=== PATIENT | male | born 1930 | race Caucasian/White ===

== ENCOUNTER → 2016-03-10 10:06 | Day surgery (SDC) | payer MEDICARE, OTHER ==
[~2016-03-10 10:06] MED LIST: Bacitracin OINTMENT* 0.5% 0.5 oz TUBE ONE; Buffered Lidocaine 1% SYR 3ML* 3 ML/SYR SYRINGE INTRADERM ONE; Ciproflox/Dexameth OTIC.SUSP* 7.5 ML BTL ONE; Dexamethasone IV* 4 MG/ML 1 ML (4 MG) ONE; DiMENhydriNATE IV* 50 MG/ML VIAL IV PUSH PRN; EPINEPHrine AMP 1 MG/ML ONE; Gelfoam 12-7 ADSORBABL SPONGE* 1 EA SPONGE ONE; Gelfoam Sponge SIZE 100* SPONGE ONE; HYDROcodone/ACET. 7.5/325 LIQ* 15 ML UDC ONE; Ibuprofen TAB* 400 MG ONE; Lidocaine 2% MPF* 2 ML VIAL ONE; Propofol* 10 MG/ML 20 ML BTL IV PUSH ONE; Succinylcholine* 20 MG/ML 10 ML VIAL ONE; fentaNYL* 50 MCG/ML 2 ML VIAL (100 MCG VIAL) ONE
[2016-03-10] MEDS: fentaNYL* 50 MCG/ML 2 ML VIAL (100 MCG VIAL) IV PRN ×4 (15:44→16:17)
[2016-03-10 17:06] VITALS: BP 138/60
--- NOTE | 2016-03-11 11:10 | OP ---
DATE OF OPERATION: 03/10/16 [facility] DATE OF : 34 SURGEON: Heraclio Shields MD HUMAN RESOURCES TECHNICIAN: None. ANESTHESIOLOGIST: Flex Gandara DO ANESTHESIA: General. PRE-OP DIAGNOSIS: Cholesteatoma, right ear. POST-OP DIAGNOSIS: Cholesteatoma, right ear. OPERATIVE PROCEDURE: Right revision tympanomastoidectomy, canal wall down. EBL: Less than 30 cc. SPECIMENS: 1. Contents of middle ear and mastoid. 2. Remnant of malleus. INDICATION: This is an 85-year-old male who 6 months ago underwent right tympanomastoidectomy, canal wall up. He had fairly extensive cholesteatoma involving the middle ear and very adherent to the stapes and sinus tympani region. The patient at that time had a lot of active inflammation of the middle ear as well with significant thickening of the middle ear mucosa making dissection difficult, so the decision was made to defer ossicular chain reconstruction and bring him back for a second-look procedure. About a month ago, which was 1 month prior to the planned second stage, the patient developed a swelling and drainage from behind the right ear implying infection in the mastoid cavity. He was placed on antibiotics with limited improvement. DESCRIPTION OF PROCEDURE: Today, the patient was brought to the operating room. He was intubated, a facial nerve monitor was placed and found to be in good working order. The patient's right ear was prepped with Betadine and draped. Postauricular sulcus was infiltrated with 5 cc of 1% lidocaine with epinephrine. The ear canal was then irrigated. There was tremendous edema of the ear canal. Skin essentially obliterating the canal and obscuring the neotympanum. A four-quadrant canal injection was made and an angled [place] blade was used to make an incision through the inflamed ear canal skin from 12 o 'clock to 6 o'clock. Attention was then turned postauricularly. The patient's prior incision was entered with a #15 blade. A small temporalis fascia graft was harvested, flattened, and dried for future use if necessary. The mastoid periosteum was then entered. At the opening to the mastoid cavity, purulent material issued from that space. A flap was then turned anteriorly towards the lateral edge of the ear canal. A [place] elevator was used to elevate the thickened posterior canal skin down to the level of the previously made incision , and a [place] drain was brought through the ear canal and out postauricularly to assist in reflecting the canal and ear forward. The mastoid periosteum was cleaned off the mastoid posteriorly and the prior mastoidectomy site was evaluated. The mastoid was filled with thick fibrous granulation tissue. There was some evidence of epithelium, which was extending from the middle ear into the mastoid antrum consistent with recurrent cholesteatoma or at least the extension of the cholesteatoma matrix into the space. The mastoid was cleaned of what appeared to be condemned, inflamed mucosa down to the level of the mastoid antrum. A tympanomeatal flap was then elevated. Again, the posterior canal skin was incredibly thickened obliterating the ear canal and so this was resected. The neotympanum was then elevated. The middle ear space was very inflamed again with thickened mucosa and some evidence of persistent cholesteatoma in the region of the stapes extending superiorly and posteriorly into the mastoid antrum. There did not appear to be cholesteatoma in the anterior mesotympanum. The edges of the prior mastoidectomy were then saucerized to provide a smoother contour to the mastoid cavity, and the decision was made to proceed with a canal wall down procedure as it did not seem feasible to be able to definitively remove all cholesteatoma matrix from the stapes. The mastoid cavity was enlarged and the edges beveled. The posterior canal wall was then thinned and then taken down and beveled laterally to accommodate the course of the facial nerve. Attempts were made to remove some of the inflamed tissue from the middle ear space, but the facial nerve monitor did begin to alarm and because of concerns regarding potential for injury to the nerve, further dissection was deferred in the middle ear space. The tympanic membrane remnant was left in place anteriorly, but was not positioned to cover the stapes. The stapes was left open in continuity with the mastoid cavity to facilitate cleaning in the future. The mastoid cavity was then filled with Ciprodex-soaked Gelfoam and a meatoplasty was performed. The incision was then closed postauricularly with 3-0 Vicryl. Iodoform packing was placed into the mastoid cavity on top of the bed of Ciprodex-soaked Gelfoam and positioned tightly into the entrance to the meatus to preserve the dimensions of the meatoplasty. Bacitracin ointment was placed on the postauricular incision. A mastoid dressing was applied. The patient was then returned to the care of the anesthesiologist, extubated without difficulty, delivered to the PACU in stable condition, where facial nerve function was found to be intact. [id number]/CPS #: [id number] MTDD
== END | disposition home or self-care (01) ==
LOC: OR 10:06
PROVIDERS: ATTEND Otolaryngology
DX: H95.01 Recurrent cholesteatoma of postmastoidectomy cavity, right ear (principal); I48.91 Unspecified atrial fibrillation; Z79.01 Long term (current) use of anticoagulants; I25.10 Atherosclerotic heart disease of native coronary artery without angina pectoris; I34.0 Nonrheumatic mitral (valve) insufficiency
CPT/HCPCS: 88304; 88311; A9270-GY; J0171; J0330; J1100; J2704; J3010

== ENCOUNTER 2016-07-26 19:12 | Emergency (ER) | payer MEDICARE, OTHER ==
[2016-07-26 19:24] VITALS: BP 127/66
--- NOTE | 2016-07-26 20:30 | UC ---
Complaint Male HPI - HPI Summary HPI Summary: 85 y/o male presents to the urgent care with urinary concerns. He reports he has a urostomy s/p prostate and bladder suregery after being Dx with cancer in 2012 at [facility], and is being f/u by DR Silveira. Pt states is usually 97.6 F and today is 99.5F in temp, he is feeling tired with his urine is brown with a tinged of blood. But he is taking eliquis. He wants to make sure he doesn't have a UTI. Pt denies fever, SOB, back pain, chest pain, N/V/ D. - History of Current Complaint Chief Complaint: UCGU Stated Complaint: UTI TYPE SYMPTOMS Time Seen by Provider: 07/26/16 20:12 Hx Obtained From: Patient Onset/Duration: Sudden Onset, Lasting Hours, Still Present Timing: Constant Severity Initially: Mild Severity Currently: Mild Pain Intensity: 0 Pain Scale Used: 0-10 Numeric Aggravating Factor(s): Nothing Alleviating Factor(s): Nothing Associated Signs And Symptoms: Positive: Hematuria. Negative: Back Pain, Fever , Rectal Pain, Nausea, Vomiting(# Of Episodes =), Penile Swelling, Penile Discharge - Risk Factors Testicular Torsion: Negative - Allergies/Home Medications Allergies/Adverse Reactions: Allergies Allergy/AdvReac Type Severity Reaction Status Date / Time Ciprofloxacin AdvReac Intermediate Tachycardia Verified 03/10/16 10:31 PMH/Surg Hx/FS Hx/Imm Hx Previously Healthy: Yes Endocrine History: Dyslipidemia Cardiovascular History: Cardiac Disease, Hypertension Cancer History: Prostate Cancer - Dx in 2012,, Other - bladder CA in 2011 Other Cancer History: bladder CA Other History Of: Negative For: HIV, Hepatitis B, Hepatitis C, Anticoagulant Therapy - Surgical History Surgical History: Yes Surgery Procedure, Year, and Place: TONSILECTOMY, 3 CYSTOSCOPIES. CARDIAC STENT PLACED - 03/28/01. PROSTATECTOMY & BLADDER REMOVAL 01/14/13 W/ UROSTOMY.- [facility]. [facility]ERY 10/16/13. and [place] [place] AND [facility]. right ear growth removed - August 2015. Cardiac cath August 2015 - no news stents. right ear surgery REMOVE GROWTH 03/10/2016 - Family History Known Family History: Negative: Cardiac Disease, Hypertension, Diabetes - Social History Alcohol Use: None Substance Use Type: None Smoking Status (MU): Never Smoked Tobacco Have You Smoked in the Last Year: No - Immunization History Most Recent Influenza Vaccination: fall 2015 Most Recent Tetanus Shot: >10yrs Most Recent Pneumonia Vaccination: 2014 Review of Systems Constitutional: Negative Skin: Negative Eyes: Negative ENT: Negative Respiratory: Negative Cardiovascular: Negative Gastrointestinal: Negative Genitourinary: Hematuria - with urostomy in place Motor: Negative Neurovascular: Negative Musculoskeletal: Negative Neurological: Negative Psychological: Negative All Other Systems Reviewed And Are Negative: Yes Physical Exam Triage Information Reviewed: Yes Appearance: Well-Appearing, No Pain Distress, Well-Nourished, Obese Vital Signs: Initial Vital Signs Temp 98 F 07/26/16 19:22 Pulse 77 07/26/16 19:22 Resp 16 07/26/16 19:22 BP 127/66 07/26/16 19:22 Pulse Ox 99 07/26/16 19:22 Vital Signs Reviewed: Yes Eye Exam: Normal Eyes: Positive: Conjunctiva Clear - PERRLA, EOMI, fundus grossly normal ENT Exam: Normal ENT: Positive: Normal ENT inspection, Hearing grossly normal, Pharynx normal, TMs normal Dental Exam: Normal Neck exam: Normal Neck: Positive: Supple, Nontender, No Lymphadenopathy Respiratory Exam: Normal Respiratory: Positive: Chest non-tender, Lungs clear, Normal breath sounds Cardiovascular Exam: Normal Cardiovascular: Positive: RRR, No Murmur, Pulses Normal Abdominal Exam: Normal Abdomen Description: Positive: Nontender, No Organomegaly, Soft, Bruit, Other: - Positive urostomy bag in Right lower side of abdomen. No signs of infection observed.. Negative: CVA Tenderness (R), CVA Tenderness (L) Bowel Sounds: Positive: Present Musculoskeletal Exam: Normal Musculoskeletal: Positive: Strength Intact, ROM Intact, No Edema Neurological Exam: Normal Neurological: Positive: Alert, Muscle Tone Normal Psychological Exam: Normal Skin Exam: Normal Complaint Male Course/Dx - Course Course Of Treatment: Pt with hematuria and UTI concern. Pt with Urostomy in place. Hx obtained. PE findings: Abdomen Description: Positive: Nontender, No Organomegaly, Soft,- Positive urostomy bag in Right lower side of abdomen. No signs of infection observed.. Negative: CVA Tenderness (R), CVA Tenderness (L), . UA ordered, Result: Positive Urine blood: 3+ H, Nitrates +, leukoesteraces: 3+. Pt given 2 tabs PO of 500mg here in the urgent care since pharmacy is closed and Pt Rx Keflex 500mg PO QID x 7 days. Advised to increase fluid intake and if symptoms do not improve to return to the urgent care or f/u with his PCP for furhter treatment. Pt understood and agreed. - Differential Dx/Diagnosis Differential Diagnosis/HQI/PQRI: Pyelonephritis, Urinary Tract Infection, Other - urostomy infection Provider Diagnoses: Urinary tract infection Discharge - Discharge Plan Condition: Stable Disposition: HOME Prescriptions: Cephalexin CAP* [Keflex CAP*] 500 mg PO QID #28 cap Patient Education Materials: Urinary Tract Infection in Men (ED) Referrals: Rich Carrillo MD [Primary Care Provider] - Additional Instructions: Please take medications as instructed and finish the full course of treatment to avoid recurrent infection. Increase fluid intake, If you do not improve or if symptoms worsen after the course of antibiotics, you should either follow up with your PCP or return to the urgent care for further evaluation and treatment.
[2016-07-26] MEDS ORDERED: Cephalexin CAP* 500 MG PO ONE (21:08)
== END 2016-07-26 21:42 | disposition home or self-care (01) ==
LOC: UCEAST 19:12
DX: N39.0 Urinary tract infection, site not specified (principal); E78.5 Hyperlipidemia, unspecified; Z85.51 Personal history of malignant neoplasm of bladder; Z93.6 Other artificial openings of urinary tract status
CPT/HCPCS: 81003; 87086; 99212; A9270-GY; G0463

== ENCOUNTER 2016-12-31 10:24 | Observation (INO) | payer MEDICARE, OTHER ==
[2016-12-31] MEDS ORDERED: NS 0.9% 1000 ML* 1,000 ML IV ONE (10:47)
[2016-12-31] MEDS ORDERED: Adenosine* 3 MG/ML VIAL ONE ×2 (10:50→10:52)
[2016-12-31 11:19] LABS: Hematocrit 37 % (42-52); Hemoglobin 12.7 g/dl (14.0-18.0); Mean Corpuscular HGB Conc 34 g/dl (31-36); Mean Corpuscular Hemoglobin 32 pg (27-31); Mean Corpuscular Volume 95 fL (80-94); Mean Platelet Volume 8 um3 (7.4-10.4); Red Blood Count 3.91 10^6/ul (4.0-5.4); Red Cell Distribution Width 14 % (10.5-15); White Blood Count 6.7 10^3/ul (3.5-10.8)
[2016-12-31 11:34] LABS: Albumin 3.1 g/dL (3.2-5.2); Calcium 8.9 mg/dL (8.6-10.3); EGFR African American 86.5 (>60); EGFR Non-African American 67.3 (>60); Magnesium 1.7 mg/dL (1.9-2.7); Potassium 3.1 mmol/L (3.5-5.0); Total Bilirubin 0.6 mg/dL (0.2-1.0); Total Protein 6.1 g/dL (6.4-8.9)
[2016-12-31 11:39] LABS: Troponin I 0.07 ng/mL (<0.04)
[2016-12-31] MEDS ORDERED: Magnesium Oxide TAB* 400 MG PO ONE (11:39)
[2016-12-31 12:16] LABS: TSH (Thyroid Stimulating Horm) 1.66 mcIU/mL (0.34-5.60)
[2016-12-31] MEDS ORDERED: Potassium Chlor TAB* 20 MEQ TAB.ER PO ONE (12:32)
[2016-12-31] MEDS ORDERED: Ondansetron INJ* 2 MG/ML VIAL IV PRN (12:32)
[2016-12-31] MEDS ORDERED: Magnesium Sulfate 2 GM IV* 2 GM/50 ML BAG IVPB ONE (12:32)
[2016-12-31] MEDS ORDERED: Acetaminophen TAB* 325 MG PO PRN (12:32)
[2016-12-31] MEDS ORDERED: NS 0.9% 1000 ML* 1,000 ML IV SCH (12:45)
[2016-12-31] MEDS ORDERED: Potassium Chloride LIQUID* 20 MEQ PACKET PO ONE ×2 (12:56→13:03)
[2016-12-31] MEDS ORDERED: Potassium Chloride LIQUID* 20 MEQ PACKET ONE (13:00)
--- NOTE | 2016-12-31 13:45 | RAD ---
INDICATION: Palpitations COMPARISON: Most recent comparison chest x-rays dated September 15, 2015 TECHNIQUE: Single AP portable view of the chest was obtained. FINDINGS: Image quality is compromised due to the relative inferiority of a portable chest x-ray. The heart and mediastinum exhibit normal size and contour. The lungs are grossly clear. There is no evidence of a large pleural effusion. Visualized bones are normal for the patient's age. IMPRESSION: No radiographic evidence for acute cardiopulmonary abnormality on this portable chest x-ray.
[2016-12-31] MEDS: Heparin VIAL(*) 5000 UNITS/ML VIAL (FIVE THOUSAND) SUBCUT SCH ×2 (14:43→21:17)
[2016-12-31 15:12] LABS: Urine Bacteria Absent (Absent); Urine Bilirubin Negative (Negative); Urine Glucose Negative (Negative); Urine Nitrite Negative (Negative)
--- NOTE | 2016-12-31 15:54 | ED ---
Karen Denise Abhishek, scribed for Abram Mazariegos MD on 12/31/16 at 1102 . Palpitations / Dysrhythmia - HPI Summary HPI Summary: This patient is a 86 year old M presenting to [facility] accompanied by two females with a chief complaint of palpitations since yesterday. Pt reports of recent infection and also states he is on a strong antibiotic (2 per day; every 12 hours). Two episodes of palpitation on Sunday and two more episodes today with episodes being described as long. The patient rates the pain 0/10 in severity. Symptoms aggravated by nothing. Symptoms alleviated by nothing. Patient reports lightheadedness, and fatigue. - History of Current Complaint Chief Complaint: EDDysrhythmPalp Time Seen by Provider: 12/31/16 10:39 Hx Obtained From: Patient Onset/Duration: Lasting Days - since yesterday, Other - multiple episodes (2 on sunday and 2 on today) Aggravating: Nothing Alleviating: Nothing Associated Signs & Symptoms: Lightheadedness - Allergy/Home Medications Allergies/Adverse Reactions: Allergies Allergy/AdvReac Type Severity Reaction Status Date / Time Ciprofloxacin AdvReac Intermediate Tachycardia Verified 03/10/16 10:31 Home Medications: Home Medications ceFUROXime TAB(*) [Ceftin TAB 250 MG(*)] 500 mg PO BID 12/31/16 [History Confirmed 12/31/16] PMH/Surg Hx/FS Hx/Imm Hx Endocrine/Hematology History: Denies: Hx Anticoagulant Therapy, Hx Diabetes, Hx Thyroid Disease Cardiovascular History: Reports: Hx Coronary Artery Disease - STENT X 1 / CHOLESTEROL CONTROL WITH MED, Hx Hypercholesterolemia, Other Cardiovascular Problems/Disorders - SOB WITH OVER EXERTION Denies: Hx Congestive Heart Failure, Hx Deep Vein Thrombosis, Hx Hypertension , Hx Myocardial Infarction, Hx Pacemaker/ICD Respiratory History: Reports: Other Respiratory Problems/Disorders - chronic lung disease Denies: Hx Asthma, Hx Chronic Obstructive Pulmonary Disease (COPD), Hx Lung Cancer, Hx Pneumonia, Hx Pulmonary Embolism GI History: Reports: Hx Gastroesophageal Reflux Disease - TAKES PROTONIX, Other GI Disorders - GERD - TREATED W/ PROTONIX Denies: Hx Gall Bladder Disease, Hx Gastrointestinal Bleed, Hx Ulcer, Hx Urosepsis History: Reports: Hx Benign Prostatic Hyperplasia, Other Problems/ Disorders - OCCASIONAL UTI Denies: Hx Dialysis, Hx Kidney Stones, Hx Renal Disease Musculoskeletal History: Reports: Hx Arthritis - NECK, Hx Back Problems, Other Musculoskeletal History - scoliosis, sciatica Sensory History: Reports: Hx Cataracts, Hx Contacts or Glasses - READING GLASSES Denies: Hx Hearing Aid Opthamlomology History: Reports: Hx Cataracts, Hx Contacts or Glasses - READING GLASSES Neurological History: Denies: Hx Dementia, Hx Migraine, Hx Seizures, Hx Transient Ischemic Attacks (TIA) Comment Only: Other Neuro Impairments/Disorders - HX OF TINGLING LEFT PINKIE FINGER, NONE NOW Psychiatric History: Denies: Hx Anxiety, Hx Depression, Hx Panic Disorder, Hx Schizophrenia, Hx Bipolar Disorder - Cancer History Cancer Type, Location and Year: PROSTATE Hx Chemotherapy: No Hx Radiation Therapy: No - Surgical History Surgery Procedure, Year, and Place: TONSILECTOMY, 3 CYSTOSCOPIES. CARDIAC STENT PLACED - 03/28/01. PROSTATECTOMY & BLADDER REMOVAL 01/14/13 W/ UROSTOMY.- [facility] [place]. [facility] 10/16/13. and [place] [facility]. right ear growth removed - August 2015. Cardiac cath August 2015 - no news stents. right ear surgery REMOVE GROWTH 03/10/2016 Hx Anesthesia Reactions: No - Immunization History Date of Tetanus Vaccine: Unk Date of Influenza Vaccine: Fall 2012 Infectious Disease History: No Infectious Disease History: Denies: Hx Clostridium Difficile, Hx Hepatitis, Hx Human Immunodeficiency Virus (HIV), Hx of Known/Suspected MRSA, Hx Shingles, Hx Tuberculosis, Hx Known/ Suspected VRE, Hx Known/Suspected VRSA, History Other Infectious Disease, Traveled Outside the [place] in Last 30 Days - Family History Known Family History: Negative: Cardiac Disease, Hypertension, Diabetes - Social History Alcohol Use: None Substance Use Type: Reports: None Smoking Status (MU): Never Smoked Tobacco Have You Smoked in the Last Year: No Review of Systems Positive: Fatigue Eyes: Negative ENT: Negative Positive: Palpitations - 2 episodes on sunday and 2 episodes on sunday Respiratory: Negative Gastrointestinal: Negative Genitourinary: Negative Musculoskeletal: Negative Skin: Negative Neurological: Other - Lighthheadness Psychological: Normal All Other Systems Reviewed And Are Negative: Yes Physical Exam - Summary Physical Exam Summary: VITAL SIGNS: Reviewed. GENERAL: ~Patient is a well-developed and nourished (MALE) who is lying comfortable in the stretcher. ~Patient is not in any acute respiratory distress. HEAD AND FACE: No signs of trauma. ~No ecchymosis, hematomas or skull depressions. No sinus tenderness. EYES: PERRLA, EOMI x 2, No injected conjunctiva, no nystagmus. EARS: Hearing grossly intact. Ear canals and tympanic membranes are within normal limits. MOUTH: Oropharynx within normal limits. NECK: Supple, trachea is midline, no adenopathy, no JVD, no carotid bruit, no c- spine tenderness, neck with full ROM. CHEST: Symmetric, no tenderness at palpation LUNGS: Clear to auscultation bilaterally. No wheezing or crackles. CVS: Rapid heart rate ABDOMEN: Soft, non-tender. No signs of distention. No rebound no guarding, and no masses palpated. Bowel sounds are normal. EXTREMITIES: FROM in all major joints, no edema, no cyanosis or clubbing. NEURO: Alert and oriented x 3. No acute neurological deficits. Speech is normal and follows commands. SKIN: Dry and warm= Triage Information Reviewed: Yes Vital Signs On Initial Exam: Initial Vitals Temp Pulse Resp BP Pulse Ox 97.8 F 85 16 135/57 96 12/31/16 10:26 12/31/16 10:26 12/31/16 10:26 12/31/16 10:26 12/31/16 10:26 Vital Signs Reviewed: Yes Diagnostics - Vital Signs Vital Signs Temp Pulse Resp BP Pulse Ox 12/31/16 10:26 97.8 F 85 16 135/57 96 - Laboratory Lab Results: Lab Results 12/31/16 12/31/16 12/31/16 Range/Units 11:07 11:07 11:07 WBC 6.7 (3.5-10.8) 10^3/ul RBC 3.91 L (4.0-5.4) 10^6/ul Hgb 12.7 L (14.0-18.0) g/dl Hct 37 L (42-52) % MCV 95 H (80-94) fL MCH 32 H (27-31) pg MCHC 34 (31-36) g/dl RDW 14 (10.5-15) % Plt Count 187 (150-450) 10^3/ul MPV 8 (7.4-10.4) um3 Neut % (Auto) 66.6 (38-83) % Lymph % (Auto) 20.7 L (25-47) % [place] % (Auto) 8.8 (1-9) % Eos % (Auto) 2.8 (0-6) % Baso % (Auto) 1.1 (0-2) % Absolute Neuts (auto) 4.5 (1.5-7.7) 10^3/ul Absolute Lymphs (auto) 1.4 (1.0-4.8) 10^3/ul Absolute Monos (auto) 0.6 (0-0.8) 10^3/ul Absolute Eos (auto) 0.2 (0-0.6) 10^3/ul Absolute Basos (auto) 0.1 (0-0.2) 10^3/ul Absolute Nucleated RBC 0 10^3/ul Nucleated RBC % 0 INR (Anticoag Therapy) (0.89-1.11) Sodium 136 (133-145) mmol/L Potassium 3.1 L (3.5-5.0) mmol/L Chloride 108 (101-111) mmol/L Carbon Dioxide 22 (22-32) mmol/L Anion Gap 6 (2-11) mmol/L BUN 20 (6-24) mg/dL Creatinine 1.05 (0.67-1.17) mg/dL Est GFR ( Amer) 86.5 (>60) Est GFR (Non-Af Amer) 67.3 (>60) BUN/Creatinine Ratio 19.0 (8-20) Glucose 135 H (70-100) mg/dL Calcium 8.9 (8.6-10.3) mg/dL Magnesium 1.7 L (1.9-2.7) mg/dL Total Bilirubin 0.60 (0.2-1.0) mg/dL AST 39 (13-39) U/L ALT 34 (7-52) U/L Alkaline Phosphatase 118 H (34-104) U/L Total Creatine Kinase 56 (10-223) U/L CK-MB (CK-2) 2.8 (0.6-6.3) ng/mL Troponin I 0.07 H* (<0.04) ng/mL B-Natriuretic Peptide 369 H ( - 100) pg/mL Total Protein 6.1 L (6.4-8.9) g/dL Albumin 3.1 L (3.2-5.2) g/dL Globulin 3.0 (2-4) g/dL Albumin/Globulin Ratio 1.0 (1-3) TSH 1.66 (0.34-5.60) mcIU/mL 12/31/16 Range/Units 11:07 WBC (3.5-10.8) 10^3/ul RBC (4.0-5.4) 10^6/ul Hgb (14.0-18.0) g/dl Hct (42-52) % MCV (80-94) fL MCH (27-31) pg MCHC (31-36) g/dl RDW (10.5-15) % Plt Count (150-450) 10^3/ul MPV (7.4-10.4) um3 Neut % (Auto) (38-83) % Lymph % (Auto) (25-47) % [place] % (Auto) (1-9) % Eos % (Auto) (0-6) % Baso % (Auto) (0-2) % Absolute Neuts (auto) (1.5-7.7) 10^3/ul Absolute Lymphs (auto) (1.0-4.8) 10^3/ul Absolute Monos (auto) (0-0.8) 10^3/ul Absolute Eos (auto) (0-0.6) 10^3/ul Absolute Basos (auto) (0-0.2) 10^3/ul Absolute Nucleated RBC 10^3/ul Nucleated RBC % INR (Anticoag Therapy) 1.14 H (0.89-1.11) Sodium (133-145) mmol/L Potassium (3.5-5.0) mmol/L Chloride (101-111) mmol/L Carbon Dioxide (22-32) mmol/L Anion Gap (2-11) mmol/L BUN (6-24) mg/dL Creatinine (0.67-1.17) mg/dL Est GFR ( Amer) (>60) Est GFR (Non-Af Amer) (>60) BUN/Creatinine Ratio (8-20) Glucose (70-100) mg/dL Calcium (8.6-10.3) mg/dL Magnesium (1.9-2.7) mg/dL Total Bilirubin (0.2-1.0) mg/dL AST (13-39) U/L ALT (7-52) U/L Alkaline Phosphatase (34-104) U/L Total Creatine Kinase (10-223) U/L CK-MB (CK-2) (0.6-6.3) ng/mL Troponin I (<0.04) ng/mL B-Natriuretic Peptide ( - 100) pg/mL Total Protein (6.4-8.9) g/dL Albumin (3.2-5.2) g/dL Globulin (2-4) g/dL Albumin/Globulin Ratio (1-3) TSH (0.34-5.60) mcIU/mL Result Diagrams: 12/31/16 11:07 12/31/16 11:07 Lab Statement: Any lab studies that have been ordered have been reviewed, and results considered in the medical decision making process. - Radiology Chest X-ray Radiology Interpretation Completed By: Radiologist - No radiographic evidence for acute cardiopulmonary abnormality on this portable chest x-ray. ED physician has reviewed this radiology report and agrees. - EKG 1036 EKG Interpretation: 1036: sinus rhythm with 156 bpm, without ST elevation and normal axis 1058 EKG Interpretation: 1058: reveals sinus rhythm with 78 bpm; PVCs and normal axis Re-Evaluation - Re-Evaluation 1152 Change: Unchanged Comment: Heart rate is 69 bpm and is sinus rhythm and Dr. Brennen Dean will be accepting patient care. Course/Dx - Course Assessment/Plan: In the ED course an IV access was obtained. Patient was placed in a court recording monitor. Patient was started with IV fluids. Patients EKG shows SVT at 156 BPM. I ordered Adenosine but before medications were given his rhythm broke and now he is in a NSR at 67 BPM. Labs without any significant abnormality except for slight anemia, hypokalemia for he was given potassium chloride. BNP 369. Troponin #1: 0.07. EKG shows SVT. CXR impression: No acute pathology. I discuss my physical exam, findings and test results with Dr. Mendoza from the hospitalist services and she agrees to admit patient to his services. Patient is hemodynamically stable alert and oriented x 3. - Diagnoses Differential Diagnosis/HQI/PQRI: Positive: Paroxymal SVT, V-Tach, Other - A. fib Provider Diagnoses: SVT (supraventricular tachycardia), Elevated troponin - Physician Notifications Discussed Care Of Patient With: Brennen Dean - Provider Will accept patient care Time Discussed With Above Provider: 11:59 Discharge - Discharge Plan Condition: Stable Disposition: ADMITTED TO [facility] documentation as recorded by the Karen carcamo Abhishek accurately reflects the service I personally performed and the decisions made by , Abram Mazariegos MD.
[2016-12-31] MEDS ORDERED: Atorvastatin* 40 MG TAB PO SCH (17:00)
[2016-12-31] MEDS ORDERED: Aspirin EC Low Dose* 81 MG TAB.EC PO SCH (17:00)
--- NOTE | 2016-12-31 20:29 | HP ---
CC: Dr. Carrillo; Dr. Tabor * HISTORY AND PHYSICAL: DATE OF ADMISSION: 12/31/16 PRIMARY CARE PROVIDER: Dr. Carrillo. PRIMARY CLINICAL EXERCISE SPECIALIST: Dr. Tabor. ATTENDING PHYSICIAN WHILE IN THE HOSPITAL: Aliyah Potter MD * (report dictated by Brennen Dean NP) CHIEF COMPLAINT: Palpitations. HISTORY OF PRESENT ILLNESS: Mr. Mauricio is an 86-year-old male patient who underwent recently a nephrostomy due to the fact that he has a urostomy because he has had history of bladder cancer and he has had a cystostomy since then. He on routine followup underwent CT imaging, was found to have left-sided hydronephrosis, thought secondary to scarring in his left ureter, so he underwent the nephrostomy, Sunday this week. Unfortunately, though, he developed an infection and was admitted to [facility], where he gets his urological care from. He was put on antibiotics. He did well up there. He was discharged and over the weekend, he has noticed that he has had about 4 episodes of palpitations. He has a longstanding history of atrial fibrillation and aflutter. He follows with Dr. Tabor in the outpatient setting for this. He is on Tikosyn and he had been pretty well controlled, he said, since starting Tikosyn a year and a half ago. Unfortunately, though, ever since this procedure, he has been having difficulties with palpitations, particularly over the weekend. He has been normally able to break them with Valsalva maneuvers, unfortunately today he could not and he came into our ER to be evaluated. He denies having any chest pressure or pain with these episodes. He denies having any fevers or chills. He says that his nephrostomy has been draining well along with his urostomy. There has been no difficulty with the ostomy or the nephrostomy tubes. The patient denied having any fevers or chills. There has been no coughing. No shortness of breath. There has been no abdominal discomfort and he denies having any, again chest discomfort. He was evaluated in the ED, when he got here it was noted heart rate was in the 140s. It did break with Valsalva maneuvers down here and unfortunately, his troponin was mildly elevated, so we were asked to evaluate for admission. PAST MEDICAL HISTORY: Significant for: 1. CAD. 2. AFib. 3. Aflutter. 4. He has had hyperlipidemia, hypertension. 5. He has had bladder and prostate cancer. PAST SURGICAL HISTORY: 1. He has had a cystectomy. He has had a nephrostomy tube placed just recently. He has had a TURP. 2. He has had lumbar surgery. 3. He has also had a cardiac catheterization with one stent. MEDICATIONS: The home meds according to his list include: 1. Ceftin 500 mg p.o. b.i.d. 2. Aspirin 81 mg daily. 3. Apixaban 5 mg p.o. b.i.d., which he is not taking. He has not been taking since the nephrostomy tube placement. 4. Calcium with vitamin D 1 tablet daily. 5. Lipitor 40 mg daily. 6. Tikosyn 250 mcg p.o. b.i.d. 7. Cartia 240 mg p.o. b.i.d. 8. Cranberry with vitamin C 2 capsules p.o. q.p.m. 9. Protonix 40 mg daily. 10. Strang-3 fatty acids 1 capsule p.o. daily. 11. Multivitamin 1 tablet daily. 12. Ergocalciferol 50,000 units p.o. monthly. ALLERGIES TO MEDICATIONS: He is allergic to CIPRO. FAMILY HISTORY: Both his parents in their 90s of old age. SOCIAL HISTORY: He is does not smoke. He rarely drinks alcohol. Surrogate decision maker is his . REVIEW OF SYSTEMS: There is no documented fever. He denied having any significant weight change. There was no double vision. No ear discharge. No rhinorrhea. No sore throat. No thyroid enlargement. Denies having any chest pain. There was palpitations. There is no orthopnea or nocturnal dyspnea. There was no abdominal pain. No nausea, no vomiting. There was no dysuria, no frequency, no seizure, no loss of consciousness, no pruritus, and no skin ulcerations. Review of 14 systems completed, all others are negative. PHYSICAL EXAMINATION GENERAL: At this time, Mr. Mauricio is an 86-year-old male patient. He appears to be well nourished, well developed. He is sitting in the ER stretcher. He does not appear to be in any acute distress. VITAL SIGNS: Blood pressure 120/69, pulse 84, respirations 18, O2 sat was 93%, and temperature was 97.8. HEENT: Head atraumatic and normocephalic. Eyes, EOMs are intact. His sclerae were anicteric, not pale. His throat, oral mucosa appears to be moist. No oropharyngeal erythema. NECK: Supple. LUNGS: Clear to auscultation. No wheezes, rales, or rhonchi. HEART: Heart sounds S1 and S2. Regular rate and rhythm. No murmurs, rubs, or gallops. ABDOMEN: Soft, flat, nontender. Bowel sounds present. EXTREMITIES: Pulses were 2+ throughout. He is able to move all 4 extremities, 5/5 strength. NEUROLOGIC: He is awake, alert, and oriented x3. No gross focal deficits. SKIN: Intact. He does have an ostomy noted to his abdomen which is on the right lower side. The stoma appears to be clean, dry, and intact. He does have a nephrostomy tube to the left flank, which again his dressing was dry and intact. He does have some old serosanguineous drainage. DIAGNOSTIC STUDIES/LABORATORY DATA: WBC is 6.7, RBC of 3.91, hemoglobin 12.7, hematocrit 37, platelet count 187,000. INR 1.14. Sodium 136, potassium 3.1, chloride 108, bicarb 22, BUN 20, creatinine 1.05, glucose 135, calcium 8.9, mag 1.7. Total bilirubin 0.6, AST 79, ALT 34, alk phos 118. CK was 56, CK-MB was 2.8, troponin 0.07. BNP 369. Albumin of 3.1. He did have an EKG. Initial EKG shows SVT, rate was 156, but it could be aflutter with a 2:[address] depression. When you look at the repeat EKG when he converted, it shows normal sinus rhythm, no ST elevations. No ST depressions. He does have PVCs. That is reviewed to his baseline EKG and appears to be similar with the exception of PVCs. Old medical records were reviewed. ASSESSMENT AND PLAN: Mr. Mauricio is an 86-year-old male patient coming into our hospital today with complaints of palpitations and appears to be in supraventricular tachycardia. He converted here in the ED, however, his troponin was elevated. We were asked to evaluate for admission. He will be admitted under observation status for: 1. Supraventricular tachycardia, concern for atrial fibrillation, aflutter. At this point, he is back to sinus rhythm. His potassium and magnesium are low. I am going to replace these and try to get them between 2 and 4 respectively. I will go ahead and cycle those troponins. I am going to leave his Tikosyn and his diltiazem alone at this point, and we will continue to follow. I did order an echo. 2. Indeterminate troponins probably secondary to demand ischemia. I think it will be beneficial to touch base with his ict systems test engineer tomorrow, Dr. Tabor. He is chest pain free. Given the fact that he is having a recent procedure, we may need to have Cardiology input. I did order an echo. I made the patient n.p.o. after midnight in case Dr. Tabor wanted to pursue a stress test. If the troponins elevate, I will give the patient a dose of Lovenox, but again he is chest pain free and most likely he has demand ischemia secondary to his rate and we will continue to follow him closely. 3. Recent urological procedures. His nephrostomy appears to be in situ, appears to be stable. Both his urostomy and his nephrostomy are draining appropriately. They appear to be stable. We will continue to follow, and he can follow with his primary urologist, Dr. Silveira and can touch base with them tomorrow to explain what is going on. 4. Coronary artery disease, continue meds as prescribed. He is having no chest pain. 5. History of bladder and prostate cancer. Follow up with his primary urologist and PCP. 6. Hypertension. Continue meds as prescribed. 7. Hyperlipidemia. Continue statin therapy. 8. DVT prophylaxis. I will place him on heparin subcu. 9. Code status. Full code. 10. Fluids, electrolytes, and nutrition: He can have a heart healthy diet. TIME SPENT: On this admission was approximately 60 minutes, greater than half the time spent [id number] with the patient obtaining my history and physical, other half time spent going over the plan of care with the patient, implementing the plan of care. I discussed the plan of care with my attending Dr. Potter, she is in agreement. BRENNEN DEAN ECHOCARDIOLOGIST [id number]/[facility] #: [id number] SANDRINE
[2016-12-31] MEDS: ceFUROXime TAB(*) 250 MG PO SCH (20:59)
[2016-12-31] MEDS ORDERED: Potassium Chlor TAB* 20 MEQ TAB.ER PO SCH (21:00)
[2016-12-31] MEDS: Diltiazem CD CAP* 240 MG PO SCH (21:01)
[2016-12-31] MEDS: Potassium Chloride LIQUID* 20 MEQ PACKET PO SCH (21:03)
[2016-12-31] MEDS: Dofetilide CAP* 250 MCG PO SCH (21:07)
[2017-01-01 05:33] LABS: Hematocrit 35 % (42-52); Hemoglobin 12.1 g/dl (14.0-18.0); Mean Corpuscular HGB Conc 34 g/dl (31-36); Mean Corpuscular Hemoglobin 33 pg (27-31); Mean Corpuscular Volume 95 fL (80-94); Mean Platelet Volume 8 um3 (7.4-10.4); Red Blood Count 3.72 10^6/ul (4.0-5.4); Red Cell Distribution Width 13 % (10.5-15); White Blood Count 6.1 10^3/ul (3.5-10.8)
[2017-01-01] MEDS: Heparin VIAL(*) 5000 UNITS/ML VIAL (FIVE THOUSAND) SUBCUT SCH (05:35)
[2017-01-01 06:06] LABS: Calcium 8.2 mg/dL (8.6-10.3); EGFR African American 86.5 (>60); EGFR Non-African American 67.3 (>60); Magnesium 1.8 mg/dL (1.9-2.7); Potassium 3.7 mmol/L (3.5-5.0)
[2017-01-01] MEDS ORDERED: Omeprazole CAP* 20 MG PO SCH (09:00)
[2017-01-01] MEDS ORDERED: Potassium Chloride LIQUID* 20 MEQ PACKET PO ONE (10:07)
[2017-01-01] MEDS ORDERED: Magnesium Sulfate 2 GM IV* 2 GM/50 ML BAG IVPB ONE (10:07)
--- NOTE | 2017-01-01 10:13 | PN ---
Subjective Date of Service: 01/01/17 Interval History: Patient seen and examined at bedside. Denies fever, chills, shortness of breath , chest discomfort, N/V/D. Tele: Sinus rhythm w/ 1st degree block, rate 60-70's. Family History: Unchanged from Admission Social History: Unchanged from Admission Past Medical History: Unchanged from Admission Objective Active Medications: Acetaminophen (Tylenol Tab*) 650 mg PO Q4H PRN Reason: FEVER/PAIN Aspirin (Aspirin Ec Low Dose*) 81 mg PO 1700 OWEN Atorvastatin Calcium (Lipitor*) 40 mg PO 1700 OWEN Cefuroxime Axetil (Ceftin Tab(*)) 500 mg PO BID OWEN Diltiazem HCl (Cardizem Cd Cap*) 240 mg PO BID OWEN Dofetilide (Tikosyn Cap*) 250 mcg PO BID OWEN Heparin Sodium (Porcine) (Heparin Vial(*)) 5,000 units SUBCUT Q8HR OWEN Sodium Chloride (Ns 0.9% 1000 Ml*) 1,000 mls @ 75 mls/hr IV PER RATE OWEN Magnesium Sulfate (Magnesium Sulfate 2 Gm Iv*) 2 gm in 50 mls @ 50 mls/hr IVPB ONCE ONE Stop: 01/01/17 11:06 Omeprazole (Prilosec Cap*) 20 mg PO QAM OWEN Potassium Chloride (Klor-Con Liquid*) 40 meq PO BID OWEN Potassium Chloride (Klor Con Er Tab*) 40 meq PO ONCE ONE Stop: 01/01/17 10:08 Vital Signs 12/31/16 12/31/16 12/31/16 12:30 13:00 13:30 Temperature Pulse Rate 68 66 64 Respiratory 16 19 17 Rate Blood Pressure 136/65 130/68 133/69 (mmHg) O2 Sat by Pulse 96 95 94 Oximetry 12/31/16 12/31/16 12/31/16 14:00 14:15 19:34 Temperature 99.0 F 97.8 F Pulse Rate 67 65 67 Respiratory 16 16 18 Rate Blood Pressure 137/68 142/69 127/56 (mmHg) O2 Sat by Pulse 95 97 97 Oximetry 01/01/17 01/01/17 00:06 03:38 Temperature 98.0 F 98.3 F Pulse Rate 69 68 Respiratory 20 22 Rate Blood Pressure 126/62 126/64 (mmHg) O2 Sat by Pulse 95 94 Oximetry Oxygen Devices in Use Now: None Appearance: NAD, Ears/Nose/Mouth/Throat: Mucous Membranes Moist Respiratory: Symmetrical Chest Expansion and Respiratory Effort, Clear to Auscultation Cardiovascular: NL Sounds; No Murmurs; No JVD, RRR Extremities: No Edema Skin: No Rash or Ulcers Neurological: Alert and Oriented x 3, NL Muscle Strength and Tone Lines/Tubes/Other Access: Clean, Dry and Intact Peripheral IV - site benign Nutrition: Taking PO's Result Diagrams: 01/01/17 05:03 01/01/17 05:03 Additional Lab and Data: Assess/Plan/Problems-Billing Assessment: Mr. Mauricio is an 86 yo male with PMH significant for CAD, Afib/flutter, HLD, HTN , bladder and prostate CA who presented to the hospital with complaints of palpitations and appeared to be in SVT. He converted in the ED, but was found to have elevated troponins. - Patient Problems (1) Paroxysmal SVT (supraventricular tachycardia) Code(s): I47.1 - SUPRAVENTRICULAR TACHYCARDIA SNOMED Code(s): 62054302 Comment: - Suspect secondary to electrolyte abnomalities - Converted to Sinus rhythm in ED - Cardiology Consult, input appreciated - Goal electrolytes: K+ >4 and MG+ >2 - Continue Tikosyn and Diltiazem (2) Electrolyte abnormality Code(s): E87.8 - OTH DISORDERS OF ELECTROLYTE AND FLUID BALANCE, NEC SNOMED Code(s): 736927710 Comment: - Hypokalemia - Resolved - Hypomagnesemia - Will give replacement prior to discahrge (3) Elevated troponin Code(s): R74.8 - ABNORMAL LEVELS OF OTHER SERUM ENZYMES SNOMED Code(s): 359641589 Comment: - Peaked at 0.08 - Denies chest pain - Suspect secondary to demand ischemia - Echo results pending (4) Paroxysmal A-fib Code(s): I48.0 - PAROXYSMAL ATRIAL FIBRILLATION SNOMED Code(s): 060244086 Comment: - Now in Sinus rhythm - With Aflutter - Continue Tikosyn and Cardizem - Eliquis on hold d/t up coming procedure (5) History of nephrostomy Code(s): Z87.448 - PERSONAL HISTORY OF OTHER DISEASES OF URINARY SYSTEM SNOMED Code(s): 121742514 Comment: - Nephrostomy tube in place - Follow-up with Dr. Silveira outpatient (6) CAD (coronary artery disease) Code(s): I25.10 - ATHSCL HEART DISEASE OF [place] CORONARY ARTERY W/O ANG PCTRS SNOMED Code(s): 01102630 Comment: - Asymptomatic - Continue ASA and statin (7) HTN (hypertension) Code(s): I10 - ESSENTIAL (PRIMARY) HYPERTENSION SNOMED Code(s): 26764491 Comment: - Normotensive, SBP 120-140's - Continue home medications (8) HLD (hyperlipidemia) Code(s): E78.5 - HYPERLIPIDEMIA, UNSPECIFIED SNOMED Code(s): 67482397 Comment: - Continue statin (9) Bladder cancer Comment: - Continue to follow with outpatient PCP and Urology (10) Prostate CA Code(s): C61 - MALIGNANT NEOPLASM OF PROSTATE SNOMED Code(s): 656687690 Comment: - Continue to follow with outpatient PCP and Urology (11) DVT prophylaxis Code(s): QMO6206 - SNOMED Code(s): 374952177 (12) Full code status Code(s): Z78.9 - OTHER SPECIFIED HEALTH STATUS SNOMED Code(s): 992265651 Status and Disposition: OBV. Stable for discharge to home today.
[2017-01-01] MEDS: Diltiazem CD CAP* 240 MG PO SCH (10:37)
[2017-01-01] MEDS: ceFUROXime TAB(*) 250 MG PO SCH (10:37)
[2017-01-01] MEDS: Dofetilide CAP* 250 MCG PO SCH (10:39)
[2017-01-01] MEDS: Potassium Chloride LIQUID* 20 MEQ PACKET PO SCH (10:42)
[2017-01-01 11:24] VITALS: BP 133/59
--- NOTE | 2017-01-01 12:49 | CONS ---
CC: Rich Carrillo MD. * CARDIOLOGY CONSULTATION: DATE OF CONSULT: 01/01/17. INDICATION FOR CONSULTATION: Admitted to the hospital with tachycardia. HISTORY OF PRESENT ILLNESS: The patient is an 86-year-old gentleman well known to me with history of paroxysmal atrial fibrillation, and history of coronary artery disease. In speaking with the patient, he states that this weekend he had a couple of episodes of tachycardia, likely has atrial fibrillation. The patient had recently been seen up at [place] for his bladder cancer and was scheduled to have a procedure on his ureters. Unfortunately, the patient had an urinary tract infection and was started on Keflex and discharged home. He is scheduled tomorrow for this repeat procedure. The patient was discharged home last week with Keflex. Unfortunately, the patient had a GI reaction to the Keflex and had some significant diarrhea. The patient stated that on Sunday this week he was having episodes of palpitations. His heart was racing. When he rested, his symptoms went away. Ultimately, on Sunday he continued to have these symptoms and came to the emergency room. On arrival at the emergency room , the patient was in supraventricular tachycardia of 150 beats per minute. The patient converted to normal sinus rhythm on his own. The patient was found to have a potassium level of 3.1 and magnesium level of 1.7 in the emergency room. These were repleted over overnight. This morning, the patient feels fine. He has no symptoms. He has no chest pain, shortness of breath, orthopnea, or PND. No lightheadedness, dizziness, or syncope. PAST MEDICAL HISTORY: Significant for atrial fibrillation. The patient is on Tikosyn, history of coronary artery disease. The patient had a stent to his LAD in 2001. The patient had a cardiac catheterization in August 2015. At that time, he had normal coronary arteries. The stent to his LAD was patent. He has a history of bladder cancer and hypertension. MEDICATIONS: Outpatient medications: 1. Tikosyn 250 mcg twice a day. 2. Eliquis 5 mg b.i.d. 3. Diltiazem ER 240 mg a day. 4. Protonix 40 mg a day. 5. Lipitor 40 mg a day. 6. Aspirin 81 mg a day. 7. Co-enzyme Q10 multiple supplements. ALLERGIES: He has intolerant of CIPROFLOXACIN. FAMILY HISTORY: Noncontributory. SOCIAL HISTORY: He is . He is retired. Denies tobacco or alcohol use. 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 PHYSICAL EXAMINATION: Height is 6 feet 1 inch, weight 200 pounds. Vital Signs : Temperature 98.3, heart rate is 68 and regular, blood pressure 126/64, respiratory rate is 16, oxygen saturation 94% on room air. Sclerae anicteric. Oropharynx is pink without erythema. Carotids are 2+ without bruits. JVD is normal. Thyroid is normal. Cardiac Exam: S1, S2, without any murmurs, rubs, or gallops. Lungs are clear to auscultation bilaterally. There is no dullness to percussion. Abdomen is soft, nontender, nondistended, with normoactive bowel sounds. Extremities show no edema. He has 2+ pulses throughout. The patient is awake, alert, and oriented. He moves all 4 extremities equally. LABORATORY DATA: CBC within normal limits. Chemistry is within normal limits. Today, his potassium is 3.7, magnesium is 1.8. His peak troponin level was 0.08 secondary to his tachycardia. TSH is 1.6. IMPRESSION: This is an 86-year-old gentleman who was admitted to the hospital with tachycardia. He was found to be in SVT. He is converted to normal sinus rhythm on his own. His SVT is likely due to his low potassium and magnesium levels secondary to his diarrhea. The patient electrolytes levels have not been repleted and he is feeling much better. For now, my recommendation is to have no other further testing. He did have an echocardiogram today, which I will read later, but anticipate no problems. The patient will continue on his outpatient medications. He will follow up with me as scheduled in February 2017. [id number]/[facility] #: [id number] [facility] HOSPITALAdonis
--- NOTE | 2017-01-01 12:55 | ECHO ---
Patient: TRISHA DIOP [facility] Rec#: [id number] : 1930 Date: 01/01/2017 Age: 86y Height: 185.42 cm / 73.0 in Weight: 86.18 kg / 189.9 lbs Sex: M BSA: 2.11 Room#: [facility] Admit Date#: 12/31/2016 Type: Inpatient Referring: Brennen Dean NP Reading: Byron Tabor MD Crepe Box Tender: Darlene Murry RDCS CC: Rich Carrillo MD Transthoracic Echocardiogram Indication: CAD, A-fib, elevated troponin level. BP: 126/64 HR: 64 Rhythm: NSR with PVCs Findings History: CAD, a-fib, HTN, HLD, bladder cancer, s/p nephrectomy. Technical Comments: The study quality is good. Completed at 1000 Left Ventricle: The left ventricular chamber size is normal. Mild concentric left ventricular hypertrophy is observed. There is a prominent septal knuckle. Global left ventricular wall motion and contractility are within normal limits. There is normal left ventricular systolic function. The estimated ejection fraction is 55-60%. Abnormal left ventricular diastolic function is observed. Abnormal left ventricular diastolic filling is observed, consistent with impaired relaxation. Left Atrium: The left atrium is moderately dilated. Right Ventricle: Moderator Band present. The right ventricle is mildly dilated. The right ventricular global systolic function is normal. Right Atrium: The right atrium is moderately dilated. Aortic Valve: The aortic valve is trileaflet. There is evidence of aortic sclerosis without stenosis. There is trace to mild aortic regurgitation. There is no evidence of aortic stenosis. Mitral Valve: There is mitral annular calcification. The mitral valve leaflets are mildly thickened. There is mild mitral regurgitation. There is no evidence of mitral stenosis. Tricuspid Valve: The tricuspid valve leaflets are normal. There is mild tricuspid regurgitation. The right ventricular systolic pressure is estimated at 43 mmHg. There is evidence of mild pulmonary hypertension. There is no tricuspid stenosis. Pulmonic Valve: The pulmonic valve appears normal. There is a trace pulmonic regurgitation. There is no pulmonic stenosis. Pericardium: There is no significant pericardial effusion. A pericardial fat pad is visualized. Aorta: There is mild dilatation of the ascending aorta. There is no dilatation of the aortic arch. There is moderate dilatation of the aortic root. Pulmonary Artery: The main pulmonary artery appears normal. Venous: The inferior vena cava is dilated. There is an approximate 50% respiratory change in the inferior vena cava dimension. Conclusions Global left ventricular wall motion and contractility are within normal limits. There is a prominent septal knuckle. The estimated ejection fraction is 55-60%. Abnormal left ventricular diastolic function is observed. The right ventricular global systolic function is normal. There is trace to mild aortic regurgitation. There is mild mitral regurgitation. There is mild tricuspid regurgitation. There is evidence of mild pulmonary hypertension. There is no significant pericardial effusion. Measurements Name Value Normal Range RVIDd (AP) 2D 2.9 cm (0.9 - 2.6) RVDdMajor (2D) 4.6 cm (2.2 - 4.4) RAd ISD 4CH 5.8 cm (3.4 - 4.9) RA (A4C)W 4.2 cm (2.9 - 4.6) IVSd (2D) 1.2 cm (0.6 - 1) LVPWd (2D) 1.2 cm (0.6 - 1) LVIDd (2D) 4.7 cm (3.6 - 5.4) LVIDs (2D) 3.1 cm - LV FS (2D) 35 % (25 - 45) Aortic Annulus 2.5 cm (1.4 - 2.6) Ao root diameter (2D) 4.2 cm (2.1 - 3.5) Ascending Ao 3.6 cm (2.1 - 3.4) Aortic arch 3 cm (1.8 - 3.4) LA dimension (AP) 2D 4.5 cm (2.3 - 3.8) LAd ISD 4CH 4.7 cm (2.9 - 5.3) LA ISD 4CH W 5 cm (2.5 - 4.5) Name Value Normal Range LA ESV SP 4CH (A/L) 74 ml - LA ESV SP 2CH (A/L) 107 ml - LA ESV BP (A/L) 95 ml - LA ESV BP (A/L) index 45 ml/m2 - LA ESV SP 4CH (MOD) 73 ml - LA ESV SP 2CH (MOD) 102 ml - Name Value Normal Range MV E-wave Vmax 0.5 m/sec - MV deceleration time 326.7 msec - MV A-wave Vmax 0.66 m/sec - MV E:A ratio 0.75 ratio - LV septal e' Vmax 0.06 m/sec - LV lateral e' Vmax 0.09 m/sec - LV E:e' septal ratio 8.33 ratio - LV E:e' lateral ratio 5.56 ratio - Name Value Normal Range AV Vmax 1 m/sec - AV VTI 20.67 cm - AV peak gradient 3.85 mmHg - AV mean gradient 2.14 mmHg - LVOT Vmax 0.76 m/sec - LVOT VTI 17.84 cm - LVOT peak gradient 2.35 mmHg - LVOT mean gradient 1.23 mmHg - ZACHARY Vmax 0.57 m/sec - Name Value Normal Range TR Vmax 2.4 m/sec - TR peak gradient 23 mmHg - RAP 20 mmHg - RVSP 43 mmHg - IVC diameter 2.4 cm - Name Value Normal Range PV Vmax 0.83 m/sec - PV peak gradient 2.82 mmHg -
--- NOTE | 2017-01-02 00:47 | DS ---
CC: Rich Carrillo MD * DISCHARGE SUMMARY: DATE OF ADMISSION: 12/31/16 DATE OF DISCHARGE: 01/01/17 ATTENDING PHYSICIAN: Estuardo Castillo MD * (dictated by Laxmi Casiano NP) PRIMARY CARE PROVIDER: Rcih Carrillo MD PRIMARY DIAGNOSES: 1. Supraventricular tachycardia. 2. Electrolyte abnormalities; hypomagnesemia and hypokalemia. 3. Hypertroponinemia, suspect secondary to demand ischemia due to supraventricular tachycardia. SECONDARY DIAGNOSES: 1. Nephrostomy. 2. Coronary artery disease. 3. History of bladder and prostate cancer. 4. Hypertension. 5. Hyperlipidemia. 6. History of paroxysmal atrial fibrillation and atrial flutter. CONSULTATIONS WHILE IN THE HOSPITAL: Byron Tabor MD, with Cardiology. STUDIES WHILE IN THE HOSPITAL: 1. Chest x-ray on 12/31/16. Radiologist's impression: No radiographic evidence for acute cardiopulmonary abnormality on this portable chest x-ray. 2. Transthoracic echocardiogram on 01/01/17. Results pending at the time of this dictation. DISCHARGE MEDICATIONS: Continued home medications: 1. Ceftin 500 mg oral twice daily. 2. Aspirin 81 mg oral daily. 3. CoQ10, 100 mg oral every evening. 4. Calcium carbonate-cholecalciferol 1 tablet oral daily. 5. Atorvastatin 40 mg oral daily. 6. Tikosyn 250 mcg oral twice daily. 7. Diltiazem XR 240 mg oral twice daily. 8. Cranberry-vitamin C-vitamin E 2 capsules oral every evening. 9. Protonix 40 mg oral daily. 10. Ceres-3-6-9 complex 1 capsule oral daily. 11. Multivitamin 1 capsule oral daily. 12. Ergocalciferol 50,000 units oral monthly. Medications on hold: 1. Eliquis. HISTORY OF PRESENT ILLNESS/HOSPITAL COURSE: Mr. Mauricio is an 86-year-old male with past medical history significant for paroxysmal atrial fib and flutter, coronary artery disease, hyperlipidemia, hypertension, and history of bladder and prostate cancer who recently underwent a nephrostomy tube placement due to the fact that his ureter was not draining as he was found to have a left-sided hydronephrosis. The patient had developed an infection, was admitted at [facility], where he gets his urological care from. He was placed on antibiotics and was doing well. He was discharged over the weekend when he noticed he had 4 episodes of palpitations due to his longstanding history of atrial fibrillation and atrial flutter. He decided to present to the hospital for further evaluation of his symptoms. The patient states normally he is able to break his palpitations with a Valsalva maneuver, but unfortunately he could not get them to break on the day of admission. While in the emergency room, the patient was noted to have an initial heart rate in the 140s with supraventricular tachycardia resolved with a Valsalva maneuver, but he was noted to have slightly elevated troponins and the hospitalists were asked to evaluate him for admission. While in the hospital, the patient remained in a sinus rhythm with controlled rate. His troponins were trended and peaked at 0.08. It was suspected this is secondary to demand ischemia due to the supraventricular tachycardia. The patient was seen in consultation by Dr. Byron Tabor who felt that his electrolyte abnormalities may have contributed to the supraventricular tachycardia. He received magnesium and potassium replacements during his stay. He also underwent a transthoracic echocardiogram with results pending at time of this dictation. It was felt that the patient was ready for discharge to home. Mr. Mauricio is stable for discharge to home today. Vital signs are as follows: Temperature 98.3, heart rate 68, respiratory rate 22, O2 sat 94% on room air, blood pressure 126/64. DISCHARGE PLAN: Mr. Mauricio will be discharged to home. Activity as tolerated. He will be on a regular diet. As far as the patient's supraventricular tachycardia, he is now in sinus rhythm. I recommend following his electrolytes as outpatient to help maintain a sinus rhythm. He should be seen in followup by his primary care provider, Dr. Rich Carrillo. Dr. Carrillo's office will call the patient in the next 48 hours with a followup appointment date and time. The patient has been asked to return to the emergency room for any chest pain, shortness of breath. The patient has been resumed on all of his usual home medications with the exception of his Eliquis, which has been held due to the fact that he will be having a urological procedure with Dr. Silveira tomorrow. He has been instructed to resume his Eliquis once instructed to do so. This is a summarized report of a complex medical history and hospital stay. For further details, please see the entire medical record. TIME SPENT: Time for this discharge was approximately 50 minutes, greater than half of that was spent with the patient discussing discharge plans and instructions. CONDITION ON DISCHARGE: Stable. LAXMI MERCEDES, GLORIA [id number]/CPS #: [id number] [facility]
== END 2017-01-01 13:20 | disposition home or self-care (01) ==
LOC: ED 10:24 → MEDTELE 12:29
PROVIDERS: ADMIT Internal Medicine; ATTEND Internal Medicine
DX: I47.1 Supraventricular tachycardia (principal); E83.42 Hypomagnesemia; E87.6 Hypokalemia; R74.8 Abnormal levels of other serum enzymes; I25.10 Atherosclerotic heart disease of native coronary artery without angina pectoris; I10 Essential (primary) hypertension; E78.5 Hyperlipidemia, unspecified; I51.7 Cardiomegaly; I48.0 Paroxysmal atrial fibrillation; E87.8 Other disorders of electrolyte and fluid balance, not elsewhere classified; Z79.01 Long term (current) use of anticoagulants; Z85.51 Personal history of malignant neoplasm of bladder; Z85.46 Personal history of malignant neoplasm of prostate; Z79.82 Long term (current) use of aspirin; Z79.899 Other long term (current) drug therapy; Z88.1 Allergy status to other antibiotic agents
CPT/HCPCS: 36415; 71010; 80048; 80053; 81003; 81015; 82550; 82553; 83735; 83880; 84443; 84484; 85025; 85610; 87086; 93005; 93306; 96365; 96366; 96372; 99284; A9270-GY; G0378; J0153; J1644; J3475

== ENCOUNTER 2021-01-13 10:55 | Inpatient (IN) ==
[~2021-01-13 10:55] MED LIST changes: -Bacitracin OINTMENT* 0.5% 0.5 oz TUBE ONE; -Buffered Lidocaine 1% SYR 3ML* 3 ML/SYR SYRINGE INTRADERM ONE; +Cefepime 2 GM in Dextrose 2 GM/50 ML BAG IV SCH; -Ciproflox/Dexameth OTIC.SUSP* 7.5 ML BTL ONE; -Dexamethasone IV* 4 MG/ML 1 ML (4 MG) ONE; -DiMENhydriNATE IV* 50 MG/ML VIAL IV PUSH PRN; -EPINEPHrine AMP 1 MG/ML ONE; -Gelfoam 12-7 ADSORBABL SPONGE* 1 EA SPONGE ONE; -Gelfoam Sponge SIZE 100* SPONGE ONE; -HYDROcodone/ACET. 7.5/325 LIQ* 15 ML UDC ONE; -Ibuprofen TAB* 400 MG ONE; -Lidocaine 2% MPF* 2 ML VIAL ONE; -Propofol* 10 MG/ML 20 ML BTL IV PUSH ONE; -Succinylcholine* 20 MG/ML 10 ML VIAL ONE; -fentaNYL* 50 MCG/ML 2 ML VIAL (100 MCG VIAL) ONE
[2021-01-13 12:38] LABS: ABS Basophils 0.1 10^3/ul (0-0.2); ABS Lymphocytes 0.7 10^3/ul (1.0-4.8); ABS Monocytes 0.9 10^3/ul (0-0.8); ABS Neutrophils 8.5 10^3/ul (1.5-7.7); Eosinophil % 0.2 %; Hematocrit 34 % (42-52); Hemoglobin 11.2 g/dL (14.0-18.0); Lymphocyte % 6.9 %; Mean Corpuscular HGB Conc 33 g/dL (31-36); Mean Corpuscular Hemoglobin 30 pg (27-31); Mean Corpuscular Volume 91 fL (80-94); Mean Platelet Volume 8.7 fL (7.4-10.4); Platelet Count 204 10^3/uL (150-450); Red Blood Count 3.67 10^6 /uL (4.18-5.48); Red Cell Distribution Width 15 % (10-15); White Blood Count 10.2 10^3/uL (3.5-10.8)
[2021-01-13 12:44] LABS: Urine Appearance Turbid; Urine Bilirubin Negative (Negative); Urine Blood 2+ (Negative); Urine Color Amber; Urine Glucose Negative (Negative); Urine Ketones Negative (Negative); Urine Nitrite Negative (Negative); Urine Protein 1+(30 mg/dL) (Negative); Urine Specific Gravity 1.015 (1.002-1.030); Urine Urobilinogen Negative (Negative)
[2021-01-13 12:48] LABS: Urine Bacteria 1+ (Absent); Urine Red Blood Cell 3+(>10/hpf) (Absent); Urine White Blood Cell 3+(>20/hpf) (Absent)
[2021-01-13 12:56] LABS: Rapid COVID-19 Molecular Undetected (Undetected)
[2021-01-13 12:59] LABS: Activated Partial Thrombo Time 35.9 seconds (26.0-38.0); INR 2.58 (0.86-1.15)
[2021-01-13 13:03] LABS: Anion Gap 7 mmol/L (2-11); Blood Urea Nitrogen 29 mg/dL (6-24); CO2 Carbon Dioxide 22 mmol/L (22-32); Chloride 105 mmol/L (101-111); Glucose 108 mg/dL (70-100); Potassium 3.7 mmol/L (3.5-5.0); Sodium 134 mmol/L (135-145)
[2021-01-13 13:04] LABS: ALT 26 U/L (7-52); AST 32 U/L (13-39); Albumin 3.1 g/dL (3.2-5.2); Albumin/Globulin Ratio 0.8 (1-3); Alkaline Phosphatase 142 U/L (35-149); C Reactive Protein 21.48 mg/L (<8.01); Calcium 8.2 mg/dL (8.6-10.3); Globulin 3.7 g/dL (2-4); Total Protein 6.8 g/dL (6.4-8.9); Troponin I 0.09 ng/mL (<0.03)
[2021-01-13] MEDS ORDERED: cefTRIAXone 1 gm/50 mL NS BAG 1 GM/50 ML BAG IV ONE (13:15)
[2021-01-13] MEDS ORDERED: NS 0.9% 1000 ml BAG 1,000 ML IV ONE ×2 (14:28→14:29)
[2021-01-13 14:55] LABS: Magnesium 1.9 mg/dL (1.9-2.7)
[2021-01-13 15:38] LABS: Troponin I 0.08 ng/mL (<0.03)
[2021-01-13] MEDS ORDERED: Cefepime 2 GM in Dextrose 2 GM/50 ML BAG IV ONE (16:00)
[2021-01-13] MEDS ORDERED: NS 0.9% IVPB ONE (16:00)
[2021-01-13] MEDS ORDERED: AMPICILLIN ADVAN IVPB ONE (16:00)
[2021-01-13] MEDS: Ampicillin ADVAN 1 GM in NS 0.9% 50 ML 50 ML IVPB SCH (23:16)
[2021-01-14] MEDS: Ampicillin ADVAN 1 GM in NS 0.9% 50 ML 50 ML IVPB SCH ×4 (03:43→22:45)
[2021-01-14 05:19] LABS: Hematocrit 31 % (42-52); Hemoglobin 10.4 g/dL (14.0-18.0); Mean Corpuscular HGB Conc 34 g/dL (31-36); Mean Corpuscular Hemoglobin 30 pg (27-31); Mean Corpuscular Volume 91 fL (80-94); Mean Platelet Volume 8.5 fL (7.4-10.4); Platelet Count 168 10^3/uL (150-450); Red Blood Count 3.41 10^6 /uL (4.18-5.48); Red Cell Distribution Width 15 % (10-15); White Blood Count 8.8 10^3/uL (3.5-10.8)
[2021-01-14 05:37] LABS: Calcium 7.8 mg/dL (8.6-10.3); Magnesium 1.9 mg/dL (1.9-2.7); Potassium 3.9 mmol/L (3.5-5.0)
[2021-01-14] MEDS: Cefepime 2 GM in Dextrose 2 GM/50 ML BAG IV SCH ×2 (06:13→18:09)
[2021-01-14] MEDS ORDERED: Potassium Chlor 10 meq TAB PO ONE (07:03)
[2021-01-14] MEDS ORDERED: Magnesium Sulfate 2 gm BAG 2 GM/50 ML BAG IVPB ONE (07:03)
[2021-01-14] MEDS ORDERED: NS 0.9% 1000 ml BAG 1,000 ML IV SCH (07:15)
[2021-01-14] MEDS: Pancrelipase 5,000 units CAP PO SCH ×3 (07:58→17:10)
[2021-01-14] MEDS: Aspirin EC 81 mg TAB.EC (enteric coated) PO SCH (07:58)
[2021-01-14] MEDS: [UNRECOGNIZED DRUG - REMARK] PO SCH (07:59)
[2021-01-14] MEDS ORDERED: cefTRIAXone 1 gm/50 mL NS BAG 1 GM/50 ML BAG IVPB SCH (09:00)
[2021-01-14 17:20] LABS: Body Fluid Source Peritonial Fluid
[2021-01-14 18:47] LABS: Body Fluid Appearance Clear; Body Fluid Color Yellow
[2021-01-14 19:42] LABS: Body Fluid Mono 42 %; Body Fluid Other Cells 1; Body Fluid Total Cells Counted 200
[2021-01-14 20:08] LABS: Body Fluid WBC 84 /mcL
[2021-01-15] MEDS: Ampicillin ADVAN 1 GM in NS 0.9% 50 ML 50 ML IVPB SCH (03:36)
[2021-01-15] MEDS: Cefepime 2 GM in Dextrose 2 GM/50 ML BAG IV SCH (05:29)
[2021-01-15] MEDS: Aspirin EC 81 mg TAB.EC (enteric coated) PO SCH (08:01)
[2021-01-15] MEDS: Pancrelipase 5,000 units CAP PO SCH ×3 (08:02→17:01)
[2021-01-15] MEDS: [UNRECOGNIZED DRUG - REMARK] PO SCH (08:04)
[2021-01-15 09:43] LABS: Calcium 7.9 mg/dL (8.6-10.3); Potassium 3.7 mmol/L (3.5-5.0)
[2021-01-15] MEDS: cefTRIAXone 1 gm/50 mL NS BAG 1 GM/50 ML BAG IVPB SCH (13:24)
[2021-01-16 06:29] LABS: Calcium 7.7 mg/dL (8.6-10.3); eGFR CKD-EPI 58.8 (>60)
[2021-01-16] MEDS: Pancrelipase 5,000 units CAP PO SCH ×2 (07:53→12:18)
[2021-01-16] MEDS: Aspirin EC 81 mg TAB.EC (enteric coated) PO SCH (07:54)
[2021-01-16] MEDS ORDERED: CMCS:OMEGA-3 FATTY ACID 1000 mg(NF) PO SCH (09:00)
[2021-01-16] MEDS: cefTRIAXone 1 gm/50 mL NS BAG 1 GM/50 ML BAG IVPB SCH (12:26)
[2021-01-16 13:16] VITALS: BP 134/64
[2021-01-17 13:29] LABS: Lactate Dehydrogenase, BF 27 U/L
[2021-01-18 10:24] LABS: Glucose, BF 134 mg/dL; Total Protein, BF 0.7 g/dL
[2021-01-18 10:25] LABS: Albumin, BF 0.3 g/dL
== END 2021-01-16 13:02 | disposition home or self-care (01) | DRG 871 ==
LOC: ED 10:55 → EDHOLD 14:46 → SUATTDRO 14:46 → MED 17:24
PROVIDERS: ADMIT Internal Medicine; ATTEND Internal Medicine

== ENCOUNTER 2021-08-11 10:16 | Inpatient (IN) ==
[2021-08-11 13:28] LABS: ABS Basophils 0.1 10^3/ul (0-0.2); ABS Eosinophils 0.1 10^3/ul (0-0.6); ABS Lymphocytes 0.7 10^3/ul (1.0-4.8); ABS Monocytes 0.8 10^3/ul (0-0.8); ABS Neutrophils 6.2 10^3/ul (1.5-7.7); Eosinophil % 1.2 %; Hematocrit 30 % (42-52); Hemoglobin 9.5 g/dL (14.0-18.0); Lymphocyte % 8.6 %; Mean Corpuscular HGB Conc 31 g/dL (31-36); Mean Corpuscular Hemoglobin 27 pg (27-31); Mean Corpuscular Volume 85 fL (80-94); Mean Platelet Volume 7.6 fL (7.4-10.4); Platelet Count 275 10^3/uL (150-450); Red Blood Count 3.57 10^6 /uL (4.18-5.48); Red Cell Distribution Width 20 % (10-15); White Blood Count 7.9 10^3/uL (3.5-10.8)
[2021-08-11 13:37] LABS: Urine Appearance Cloudy; Urine Bilirubin Negative (Negative); Urine Blood 1+ (Negative); Urine Color Yellow; Urine Glucose Negative (Negative); Urine Ketones Negative (Negative); Urine Nitrite Negative (Negative); Urine Protein 1+(30 mg/dL) (Negative); Urine Specific Gravity 1.013 (1.002-1.030); Urine Urobilinogen Negative (Negative)
[2021-08-11 13:55] LABS: Urine Bacteria 1+ (Absent); Urine Red Blood Cell 2+(6-10/hpf) (Absent); Urine White Blood Cell Trace(0-5/hpf) (Absent)
[2021-08-11 14:21] LABS: Albumin 2.8 g/dL (3.2-5.2); Albumin/Globulin Ratio 0.7 (1-3); Calcium 7.9 mg/dL (8.6-10.3); Globulin 3.8 g/dL (2-4); Potassium 4.4 mmol/L (3.5-5.0); Total Bilirubin 0.6 mg/dL (0.2-1.0); Total Protein 6.6 g/dL (6.4-8.9); eGFR CKD-EPI 28.1 (>60)
[2021-08-11 15:56] LABS: Body Fluid WBC 36 /mcL
[2021-08-11 16:47] LABS: Body Fluid Mono 34 %; Body Fluid Total Cells Counted 200
[2021-08-11 16:48] LABS: Body Fluid Appearance Clear; Body Fluid Color Yellow; Body Fluid Source Peritonial Fluid
[2021-08-11] MEDS: Octreotide Acetate 500 MCG in NS 0.9% 100 ml BAG 100 ML IV SCH (17:52)
[2021-08-11] MEDS: Albumin Human 25% 25 GM/100 ML BTL IV SCH ×2 (17:54→19:47)
[2021-08-12] MEDS: Octreotide Acetate 500 MCG in NS 0.9% 100 ml BAG 100 ML IV SCH ×3 (03:08→23:23)
[2021-08-12 06:47] LABS: ABS Basophils 0.1 10^3/ul (0-0.2); ABS Eosinophils 0.1 10^3/ul (0-0.6); ABS Lymphocytes 0.6 10^3/ul (1.0-4.8); ABS Monocytes 0.5 10^3/ul (0-0.8); Hematocrit 23 % (42-52); Hemoglobin 7.4 g/dL (14.0-18.0); Lymphocyte % 13.7 %; Mean Corpuscular HGB Conc 32 g/dL (31-36); Mean Corpuscular Hemoglobin 27 pg (27-31); Mean Corpuscular Volume 85 fL (80-94); Mean Platelet Volume 7.6 fL (7.4-10.4); Platelet Count 194 10^3/uL (150-450); Red Blood Count 2.74 10^6 /uL (4.18-5.48); Red Cell Distribution Width 19 % (10-15); White Blood Count 4.2 10^3/uL (3.5-10.8)
[2021-08-12 07:09] LABS: Calcium 7.4 mg/dL (8.6-10.3); Potassium 4.5 mmol/L (3.5-5.0); eGFR CKD-EPI 31.9 (>60)
[2021-08-12] MEDS ORDERED: Aspirin EC 81 mg TAB.EC (enteric coated) PO SCH (09:00)
[2021-08-12 09:14] LABS: ABS Basophils 0.1 10^3/ul (0-0.2); ABS Eosinophils 0.1 10^3/ul (0-0.6); ABS Lymphocytes 0.6 10^3/ul (1.0-4.8); ABS Monocytes 0.6 10^3/ul (0-0.8); Eosinophil % 2.7 %; Hematocrit 27 % (42-52); Hemoglobin 8.5 g/dL (14.0-18.0); Lymphocyte % 11.8 %; Mean Corpuscular HGB Conc 32 g/dL (31-36); Mean Corpuscular Hemoglobin 27 pg (27-31); Mean Corpuscular Volume 85 fL (80-94); Mean Platelet Volume 7.7 fL (7.4-10.4); Platelet Count 231 10^3/uL (150-450); Red Blood Count 3.13 10^6 /uL (4.18-5.48); Red Cell Distribution Width 19 % (10-15); White Blood Count 5.3 10^3/uL (3.5-10.8)
[2021-08-12] MEDS: Potassium Chlor 20 meq TAB.ER PO SCH (11:10)
[2021-08-12] MEDS: Albumin Human 25% 25 GM/100 ML BTL IV SCH ×2 (13:47→15:38)
[2021-08-13 08:16] LABS: ABS Basophils 0.1 10^3/ul (0-0.2); ABS Eosinophils 0.2 10^3/ul (0-0.6); ABS Lymphocytes 0.7 10^3/ul (1.0-4.8); ABS Monocytes 0.6 10^3/ul (0-0.8); ABS Neutrophils 3.7 10^3/ul (1.5-7.7); Eosinophil % 3.9 %; Hematocrit 26 % (42-52); Hemoglobin 8.1 g/dL (14.0-18.0); Lymphocyte % 12.6 %; Mean Corpuscular HGB Conc 32 g/dL (31-36); Mean Corpuscular Hemoglobin 27 pg (27-31); Mean Corpuscular Volume 85 fL (80-94); Mean Platelet Volume 7.7 fL (7.4-10.4); Platelet Count 212 10^3/uL (150-450); Red Blood Count 2.98 10^6 /uL (4.18-5.48); Red Cell Distribution Width 20 % (10-15); White Blood Count 5.2 10^3/uL (3.5-10.8)
[2021-08-13 09:00] LABS: Albumin 2.9 g/dL (3.2-5.2); Albumin/Globulin Ratio 1.2 (1-3); Calcium 7.6 mg/dL (8.6-10.3); Globulin 2.4 g/dL (2-4); Potassium 4.2 mmol/L (3.5-5.0); Total Bilirubin 0.9 mg/dL (0.2-1.0); Total Protein 5.3 g/dL (6.4-8.9); eGFR CKD-EPI 39.2 (>60)
[2021-08-13] MEDS: Octreotide Acetate 500 MCG in NS 0.9% 100 ml BAG 100 ML IV SCH (09:28)
[2021-08-13] MEDS: Potassium Chlor 20 meq TAB.ER PO SCH (09:28)
[2021-08-13 14:58] LABS: BF PH 8.4
[2021-08-13] MEDS ORDERED: Lactated Ringers 500 ml BAG 500 ML IV SCH (15:00)
[2021-08-13 15:04] LABS: Glucose, BF 130 mg/dL
[2021-08-14 07:22] LABS: ABS Basophils 0.1 10^3/ul (0-0.2); ABS Eosinophils 0.3 10^3/ul (0-0.6); ABS Lymphocytes 0.8 10^3/ul (1.0-4.8); ABS Monocytes 0.7 10^3/ul (0-0.8); ABS Neutrophils 3.5 10^3/ul (1.5-7.7); Eosinophil % 4.8 %; Hematocrit 27 % (42-52); Hemoglobin 8.4 g/dL (14.0-18.0); Lymphocyte % 14.4 %; Mean Corpuscular HGB Conc 32 g/dL (31-36); Mean Corpuscular Hemoglobin 27 pg (27-31); Mean Corpuscular Volume 86 fL (80-94); Mean Platelet Volume 7.9 fL (7.4-10.4); Platelet Count 209 10^3/uL (150-450); Red Blood Count 3.11 10^6 /uL (4.18-5.48); Red Cell Distribution Width 20 % (10-15); White Blood Count 5.3 10^3/uL (3.5-10.8)
[2021-08-14 07:32] LABS: Calcium 7.4 mg/dL (8.6-10.3); Magnesium 2.6 mg/dL (1.9-2.7); Potassium 4.5 mmol/L (3.5-5.0); eGFR CKD-EPI 46.1 (>60)
[2021-08-14] MEDS: Potassium Chlor 20 meq TAB.ER PO SCH (08:47)
[2021-08-15 07:13] LABS: ABS Basophils 0.1 10^3/ul (0-0.2); ABS Eosinophils 0.2 10^3/ul (0-0.6); ABS Lymphocytes 0.8 10^3/ul (1.0-4.8); ABS Monocytes 0.7 10^3/ul (0-0.8); ABS Neutrophils 4.2 10^3/ul (1.5-7.7); Hematocrit 26 % (42-52); Hemoglobin 8.4 g/dL (14.0-18.0); Lymphocyte % 13.4 %; Mean Corpuscular HGB Conc 32 g/dL (31-36); Mean Corpuscular Hemoglobin 28 pg (27-31); Mean Corpuscular Volume 86 fL (80-94); Mean Platelet Volume 7.9 fL (7.4-10.4); Platelet Count 212 10^3/uL (150-450); Red Blood Count 3.05 10^6 /uL (4.18-5.48); Red Cell Distribution Width 19 % (10-15); White Blood Count 5.9 10^3/uL (3.5-10.8)
[2021-08-15 08:19] LABS: Calcium 7.4 mg/dL (8.6-10.3); Magnesium 2.4 mg/dL (1.9-2.7); Potassium 4.6 mmol/L (3.5-5.0); eGFR CKD-EPI 46.1 (>60)
[2021-08-15] MEDS: Potassium Chlor 20 meq TAB.ER PO SCH (08:50)
[2021-08-16 05:29] LABS: Hematocrit 26 % (42-52); Hemoglobin 8.5 g/dL (14.0-18.0); Mean Corpuscular HGB Conc 33 g/dL (31-36); Mean Corpuscular Hemoglobin 28 pg (27-31); Mean Corpuscular Volume 85 fL (80-94); Mean Platelet Volume 7.8 fL (7.4-10.4); Platelet Count 207 10^3/uL (150-450); Red Blood Count 3.04 10^6 /uL (4.18-5.48); Red Cell Distribution Width 19 % (10-15)
[2021-08-16 05:42] LABS: Calcium 7.5 mg/dL (8.6-10.3); Magnesium 2.4 mg/dL (1.9-2.7); Potassium 4.5 mmol/L (3.5-5.0); eGFR CKD-EPI 48.9 (>60)
[2021-08-16] MEDS: Potassium Chlor 20 meq TAB.ER PO SCH (09:25)
[2021-08-16 11:30] LABS: Fluid Type, Protein, Total ASCITIC
[2021-08-16 15:28] VITALS: BP 128/62
== END 2021-08-16 17:15 | disposition home health service (06) | DRG 684 ==
LOC: ED 10:16 → EDHOLD 16:00 → SUATTDRO 16:00 → MED 20:15
PROVIDERS: ADMIT Internal Medicine; ATTEND Internal Medicine

== ENCOUNTER 2022-02-11 14:19 | Inpatient (IN) ==
[2022-02-11 14:46] LABS: ABS Basophils 0.1 10^3/ul (0-0.2); ABS Eosinophils 0.1 10^3/ul (0-0.6); ABS Lymphocytes 0.5 10^3/ul (1.0-4.8); ABS Neutrophils 6.4 10^3/ul (1.5-7.7); Eosinophil % 0.7 %; Hematocrit 26 % (42-52); Hemoglobin 8.4 g/dL (14.0-18.0); Lymphocyte % 6.8 %; Mean Corpuscular HGB Conc 32 g/dL (31-36); Mean Corpuscular Hemoglobin 32 pg (27-31); Mean Corpuscular Volume 100 fL (80-94); Mean Platelet Volume 7.8 fL (7.4-10.4); Nucleated Red Blood Cells % 0.1; Platelet Count 216 10^3/uL (150-450); Red Blood Count 2.62 10^6 /uL (4.18-5.48); Red Cell Distribution Width 18 % (10-15)
[2022-02-11 15:22] LABS: Albumin 2.2 g/dL (3.2-5.2); Albumin/Globulin Ratio 0.6 (1-3); Calcium 7.4 mg/dL (8.6-10.3); Globulin 3.7 g/dL (2-4); Potassium 4.1 mmol/L (3.5-5.0); Total Bilirubin 0.7 mg/dL (0.2-1.0); Total Protein 5.9 g/dL (6.4-8.9); eGFR CKD-EPI 18.9 (>60)
[2022-02-11] MEDS ORDERED: Albumin Human 5% 12.5 GM/250 ML BTL IV ONE (15:39)
[2022-02-11] MEDS ORDERED: Albumin Human 25% 25 GM/100 ML BTL IV ONE (15:40)
[2022-02-11] MEDS ORDERED: NS 0.9% 1000 ml BAG 1,000 ML IV ONE (16:20)
[2022-02-11] MEDS ORDERED: NS 0.9% 500 ml BAG 500 ML IV SCH (17:00)
[2022-02-11 18:32] LABS: Magnesium 2.7 mg/dL (1.9-2.7)
[2022-02-11 21:14] LABS: Ferritin 30.7 ng/mL (24-336)
[2022-02-12 06:57] LABS: ABS Lymphocytes 0.8 10^3/ul (1.0-4.8); ABS Monocytes 1.2 10^3/ul (0-0.8); ABS Neutrophils 6.5 10^3/ul (1.5-7.7); Eosinophil % 0.2 %; Hematocrit 20 % (42-52); Hemoglobin 6.8 g/dL (14.0-18.0); Lymphocyte % 8.8 %; Mean Corpuscular HGB Conc 33 g/dL (31-36); Mean Corpuscular Hemoglobin 32 pg (27-31); Mean Corpuscular Volume 97 fL (80-94); Nucleated Red Blood Cells % 0.1; Platelet Count 173 10^3/uL (150-450); Red Cell Distribution Width 17 % (10-15); White Blood Count 8.5 10^3/uL (3.5-10.8)
[2022-02-12 07:00] LABS: INR 1.81 (0.88-1.18)
[2022-02-12 07:16] LABS: Albumin 2.4 g/dL (3.2-5.2); Albumin/Globulin Ratio 0.8 (1-3); Calcium 7.4 mg/dL (8.6-10.3); Globulin 2.9 g/dL (2-4); Potassium 4.2 mmol/L (3.5-5.0); Total Bilirubin 1.2 mg/dL (0.2-1.0); Total Protein 5.3 g/dL (6.4-8.9)
[2022-02-12] MEDS: Potassium Chlor 20 meq TAB.ER PO SCH (08:05)
[2022-02-12] MEDS: Albumin Human 25% 25 GM/100 ML BTL IV SCH ×3 (18:34→23:24)
[2022-02-13] MEDS: Albumin Human 25% 25 GM/100 ML BTL IV SCH ×5 (01:34→19:26)
[2022-02-13] MEDS ORDERED: Morphine 2 MG/ML SYRINGE IV ONE (01:59)
[2022-02-13 06:10] LABS: ABS Lymphocytes 0.7 10^3/ul (1.0-4.8); ABS Neutrophils 6.3 10^3/ul (1.5-7.7); Eosinophil % 0.6 %; Hematocrit 21 % (42-52); Lymphocyte % 8.4 %; Mean Corpuscular HGB Conc 33 g/dL (31-36); Mean Corpuscular Hemoglobin 32 pg (27-31); Mean Corpuscular Volume 95 fL (80-94); Mean Platelet Volume 8.3 fL (7.4-10.4); Nucleated Red Blood Cells % 0.1; Platelet Count 147 10^3/uL (150-450); Red Blood Count 2.22 10^6 /uL (4.18-5.48); Red Cell Distribution Width 19 % (10-15)
[2022-02-13 06:37] LABS: Calcium 7.6 mg/dL (8.6-10.3); eGFR CKD-EPI 16.4 (>60)
[2022-02-13] MEDS: Potassium Chlor 20 meq TAB.ER PO SCH (09:02)
[2022-02-13] MEDS ORDERED: Albumin Human 25% 100 GM/400 ML BTL IV SCH (11:00)
[2022-02-13 12:44] LABS: Body Fluid Appearance Bloody; Body Fluid Color Red; Body Fluid Source Peritonial Fluid
[2022-02-13] MEDS ORDERED: NS 0.9% IVPB SCH (13:00)
[2022-02-13] MEDS ORDERED: CEFTRIAXONE ADVAN IVPB SCH (13:00)
[2022-02-13] MEDS ORDERED: cefTRIAXone 1 gm/50 mL D5W 1 GM/50 ML BAG IV SCH (13:00)
[2022-02-13 13:03] LABS: Body Fluid WBC 325 /mcL
[2022-02-13 13:49] LABS: Body Fluid Mono 59 %; Body Fluid Total Cells Counted 200
[2022-02-13 16:09] LABS: Hematocrit 23 % (42-52); Hemoglobin 7.4 g/dL (14.0-18.0); Mean Corpuscular HGB Conc 33 g/dL (31-36); Mean Corpuscular Hemoglobin 31 pg (27-31); Mean Corpuscular Volume 95 fL (80-94); Mean Platelet Volume 7.8 fL (7.4-10.4); Platelet Count 148 10^3/uL (150-450); Red Blood Count 2.38 10^6 /uL (4.18-5.48); Red Cell Distribution Width 19 % (10-15); White Blood Count 8.1 10^3/uL (3.5-10.8)
[2022-02-13 16:49] LABS: Calcium 7.8 mg/dL (8.6-10.3); Potassium 4.5 mmol/L (3.5-5.0)
[2022-02-13 16:54] LABS: eGFR CKD-EPI 16.3 (>60)
[2022-02-13 20:42] LABS: Albumin 3.9 g/dL (3.2-5.2); Potassium 4.2 mmol/L (3.5-5.0); Total Bilirubin 1.4 mg/dL (0.2-1.0)
[2022-02-13 20:48] LABS: Total Protein 5.9 g/dL (6.4-8.9); eGFR CKD-EPI 16.4 (>60)
[2022-02-14] MEDS ORDERED: cefTRIAXone ADVAN VIAL 1 GM in NS 0.9% 50 ML 50 ML IVPB SCH (04:43)
[2022-02-14 05:50] LABS: ABS Eosinophils 0.1 10^3/ul (0-0.6); ABS Lymphocytes 0.6 10^3/ul (1.0-4.8); ABS Neutrophils 6.2 10^3/ul (1.5-7.7); Hematocrit 21 % (42-52); Hemoglobin 7.1 g/dL (14.0-18.0); Lymphocyte % 7.3 %; Mean Corpuscular HGB Conc 34 g/dL (31-36); Mean Corpuscular Hemoglobin 32 pg (27-31); Mean Corpuscular Volume 95 fL (80-94); Mean Platelet Volume 8.2 fL (7.4-10.4); Platelet Count 140 10^3/uL (150-450); Red Blood Count 2.22 10^6 /uL (4.18-5.48); Red Cell Distribution Width 18 % (10-15); White Blood Count 7.8 10^3/uL (3.5-10.8)
[2022-02-14 09:11] LABS: Albumin 3.5 g/dL (3.2-5.2); Calcium 7.7 mg/dL (8.6-10.3); Potassium 4.4 mmol/L (3.5-5.0); Total Bilirubin 1.3 mg/dL (0.2-1.0)
[2022-02-14 09:17] LABS: Albumin/Globulin Ratio 1.9 (1-3); Globulin 1.8 g/dL (2-4); Total Protein 5.3 g/dL (6.4-8.9); eGFR CKD-EPI 16.3 (>60)
[2022-02-14] MEDS: Potassium Chlor 20 meq TAB.ER PO SCH (10:01)
[2022-02-14] MEDS: Albumin Human 25% 25 GM/100 ML BTL IV SCH ×4 (12:15→20:28)
[2022-02-14] MEDS: cefTRIAXone ADVAN VIAL 1 GM in NS 0.9% 50 ML 50 ML IVPB SCH (23:14)
[2022-02-15 05:33] LABS: ABS Eosinophils 0.2 10^3/ul (0-0.6); ABS Lymphocytes 0.5 10^3/ul (1.0-4.8); ABS Monocytes 0.9 10^3/ul (0-0.8); ABS Neutrophils 5.4 10^3/ul (1.5-7.7); Eosinophil % 2.6 %; Hematocrit 21 % (42-52); Hemoglobin 6.9 g/dL (14.0-18.0); Lymphocyte % 6.7 %; Mean Corpuscular HGB Conc 33 g/dL (31-36); Mean Corpuscular Hemoglobin 32 pg (27-31); Mean Corpuscular Volume 96 fL (80-94); Mean Platelet Volume 8.6 fL (7.4-10.4); Platelet Count 136 10^3/uL (150-450); Red Blood Count 2.21 10^6 /uL (4.18-5.48); Red Cell Distribution Width 18 % (10-15); White Blood Count 6.9 10^3/uL (3.5-10.8)
[2022-02-15 06:16] LABS: Calcium 7.8 mg/dL (8.6-10.3); Magnesium 2.9 mg/dL (1.9-2.7); Potassium 4.5 mmol/L (3.5-5.0)
[2022-02-15] MEDS: Potassium Chlor 20 meq TAB.ER PO SCH (09:49)
[2022-02-15 12:09] LABS: TSH Ultra Thyroid Stim Horm 1.06 mcIU/mL (0.34-5.60)
[2022-02-15 12:20] LABS: Folate 7.39 ng/mL (5.90-24.80)
[2022-02-15] MEDS: Albumin Human 25% 25 GM/100 ML BTL IV SCH ×2 (12:45→16:31)
[2022-02-15 14:47] LABS: Lactate Dehydrogenase, BF 112 U/L
[2022-02-15 16:08] LABS: Glucose, BF 114 mg/dL
[2022-02-15 16:11] LABS: Fluid Type, Protein, Total PERITONEAL FLUID; Total Protein, BF 2.1 g/dL
[2022-02-15 16:12] LABS: Albumin, BF 0.8 g/dL; Fluid Type, Albumin PERITONEAL FLUID
[2022-02-15 17:07] LABS: ABS Eosinophils 0.2 10^3/ul (0-0.6); ABS Lymphocytes 0.6 10^3/ul (1.0-4.8); ABS Monocytes 1.3 10^3/ul (0-0.8); Eosinophil % 2.5 %; Hematocrit 25 % (42-52); Hemoglobin 8.3 g/dL (14.0-18.0); Lymphocyte % 7.5 %; Mean Corpuscular HGB Conc 33 g/dL (31-36); Mean Corpuscular Hemoglobin 32 pg (27-31); Mean Corpuscular Volume 95 fL (80-94); Mean Platelet Volume 8.7 fL (7.4-10.4); Platelet Count 146 10^3/uL (150-450); Red Blood Count 2.61 10^6 /uL (4.18-5.48); Red Cell Distribution Width 18 % (10-15); White Blood Count 8.2 10^3/uL (3.5-10.8)
[2022-02-15] MEDS: cefTRIAXone ADVAN VIAL 1 GM in NS 0.9% 50 ML 50 ML IVPB SCH ×2 (21:48→23:03)
[2022-02-16] MEDS: Albumin Human 25% 25 GM/100 ML BTL IV SCH ×3 (00:16→14:17)
[2022-02-16 09:03] LABS: ABS Eosinophils 0.3 10^3/ul (0-0.6); ABS Lymphocytes 0.5 10^3/ul (1.0-4.8); ABS Neutrophils 6.4 10^3/ul (1.5-7.7); Eosinophil % 3.4 %; Hematocrit 27 % (42-52); Hemoglobin 9.2 g/dL (14.0-18.0); Lymphocyte % 5.8 %; Mean Corpuscular HGB Conc 34 g/dL (31-36); Mean Corpuscular Hemoglobin 32 pg (27-31); Mean Corpuscular Volume 95 fL (80-94); Mean Platelet Volume 8.7 fL (7.4-10.4); Platelet Count 151 10^3/uL (150-450); Red Blood Count 2.89 10^6 /uL (4.18-5.48); Red Cell Distribution Width 18 % (10-15); White Blood Count 8.2 10^3/uL (3.5-10.8)
[2022-02-16 09:07] LABS: INR 1.98 (0.88-1.18)
[2022-02-16] MEDS: Potassium Chlor 20 meq TAB.ER PO SCH (09:11)
[2022-02-16 09:30] LABS: Albumin 4.4 g/dL (3.2-5.2); Albumin/Globulin Ratio 2.6 (1-3); Calcium 8.3 mg/dL (8.6-10.3); Globulin 1.7 g/dL (2-4); Magnesium 2.9 mg/dL (1.9-2.7); Potassium 4.5 mmol/L (3.5-5.0); Total Bilirubin 1.6 mg/dL (0.2-1.0); Total Protein 6.1 g/dL (6.4-8.9); eGFR CKD-EPI 19.8 (>60)
[2022-02-16] MEDS ORDERED: Ferric Gluconate IV 250 MG in NS 0.9% 100 ml BAG 200 ML IVPB SCH (10:30)
[2022-02-16] MEDS ORDERED: Sodium Citrate/Citric Acid LIQ 15 ML UDC PO SCH (14:00)
[2022-02-16 15:37] VITALS: BP 117/49
== END 2022-02-16 17:55 | disposition home or self-care (01) | DRG 682 ==
LOC: EDHOLD 14:19 → ED 14:19 → SUATTDRO 18:05 → MEDTELE 21:25
PROVIDERS: ADMIT Internal Medicine; ATTEND Internal Medicine

== ENCOUNTER 2022-03-12 16:48 | Inpatient (IN) ==
[~2022-03-12 16:48] MED LIST changes: -Cefepime 2 GM in Dextrose 2 GM/50 ML BAG IV SCH; +Sodium Bicarbonate 8.4% SYR 50 ml SYRINGE IV SCH
[2022-03-12] MEDS ORDERED: NS 0.9% 1000 ml BAG 1,000 ML IV ONE ×2 (16:55→19:49)
[2022-03-12 17:31] LABS: Hematocrit 23 % (42-52); Hemoglobin 6.6 g/dL (14.0-18.0); Mean Corpuscular HGB Conc 29 g/dL (31-36); Mean Corpuscular Hemoglobin 33 pg (27-31); Mean Corpuscular Volume 112 fL (80-94); Mean Platelet Volume 8.5 fL (7.4-10.4); Platelet Count 200 10^3/uL (150-450); Red Blood Count 2.03 10^6 /uL (4.18-5.48); Red Cell Distribution Width 22 % (10-15); White Blood Count 8.1 10^3/uL (3.5-10.8)
[2022-03-12 17:52] LABS: Albumin 2.4 g/dL (3.2-5.2); Albumin/Globulin Ratio 0.9 (1-3); C Reactive Protein 38.02 mg/L (<8.01); Calcium 7.3 mg/dL (8.6-10.3); Creatinine, Serum 2.78 mg/dL (0.67-1.17); Globulin 2.6 g/dL (2-4); Magnesium 2.8 mg/dL (1.9-2.7); Phosphorus 5.3 mg/dL (2.5-5.0); Potassium 4.6 mmol/L (3.5-5.0); eGFR CKD-EPI 21.1 (>60)
[2022-03-12 17:53] LABS: Anisocytosis 2+; Hypochromasia 2+; Macrocytosis 2+
[2022-03-12 17:54] LABS: Burr Cells 1+; Platelet Morphology Large
[2022-03-12 17:55] LABS: ABS Lymphocytes 0.7 10^3/ul (1.0-4.8); ABS Monocytes 0.7 10^3/ul (0-0.8); ABS Neutrophils 6.7 10^3/ul (1.5-7.7); Eosinophil % 0.4 %; Lymphocyte % 8.2 %; Nucleated Red Blood Cells % 0.1
[2022-03-12 19:02] LABS: INR 3.14 (0.88-1.18)
[2022-03-12 19:34] LABS: High Sensitivity Troponin 1 Hr 41 pg/mL (<20)
[2022-03-12] MEDS ORDERED: Piperacillin/Tazobac ADVAN 3.375 GM in NS 0.9% 100 ml BAG 100 ML IV ONE (19:54)
[2022-03-12] MEDS ORDERED: Albumin Human 5% 12.5 GM/250 ML BTL IV ONE ×2 (19:56→21:00)
[2022-03-12] MEDS ORDERED: Zosyn per Pharmacy NOTE FOLLOW UP SCH (20:00)
[2022-03-12] MEDS ORDERED: Norepinephrine 16MCG/ML BAGD5W 4,000 MCG/250 ML BAG IV SCH (20:00)
[2022-03-12 20:08] LABS: PCO2 Arterial 20 mmHg (35-45); PO2 Arterial 233 mmHg (80-100)
[2022-03-12] MEDS ORDERED: Succinylcholine 200 mg VIAL 20 mg/ml 10 ml VIAL (200 mg) ONE (20:16)
[2022-03-12] MEDS ORDERED: Rocuronium 50 mg VIAL 10 mg/ml 5 ml VIAL (50 mg) ONE ×2 (20:16→20:34)
[2022-03-12] MEDS ORDERED: Sodium Bicarbonate 8.4% SYR 50 ml SYRINGE IV ONE (20:18)
[2022-03-12] MEDS ORDERED: Ketamine HCL 50 mg/ml 10 ml VIAL (500 MG) ONE (20:34)
[2022-03-12] MEDS ORDERED: Propofol 10 mg/ml 100 ML BTL 1,000 MG/100 ML BTL ONE (20:40)
[2022-03-12 20:44] LABS: Hematocrit 23 % (42-52); Hemoglobin 7.4 g/dL (14.0-18.0)
[2022-03-12] MEDS: Propofol 10 mg/ml 100 ML BTL 1,000 MG/100 ML BTL IV SCH (21:04)
[2022-03-12] MEDS: VASOPRESSIN IVPREMIX BTL 40 UNIT/100 ML BTL IV SCH (21:05)
[2022-03-12] MEDS ORDERED: Norepinephrine 16MCG/ML BAGD5W 4,000 MCG/250 ML BAG IV ONE (21:36)
[2022-03-12] MEDS: Norepinephrine *QUAD STRENGTH* 16 mg/250 mL NS per protocol IV SCH (23:11)
[2022-03-12 23:17] LABS: PCO2 Arterial 21 mmHg (35-45); PO2 Arterial 152 mmHg (80-100)
[2022-03-12 23:56] LABS: Urine Appearance Cloudy; Urine Bilirubin Negative (Negative); Urine Blood 2+ (Negative); Urine Color Amber; Urine Glucose Negative (Negative); Urine Ketones Negative (Negative); Urine Nitrite Negative (Negative); Urine Protein 1+(30 mg/dL) (Negative); Urine Specific Gravity 1.013 (1.002-1.030); Urine Urobilinogen Negative (Negative)
[2022-03-13 00:19] LABS: Urine Bacteria 3+ (Absent); Urine Red Blood Cell 3+(>10/hpf) (Absent); Urine White Blood Cell 1+(6-10/hpf) (Absent)
[2022-03-13] MEDS ORDERED: Albuterol/Ipratropium NEB.SOL (2.5/0.5 MG) 3 ML NEB.SOLN INH PRN (00:59)
[2022-03-13] MEDS ORDERED: Albumin Human 5% 12.5 GM/250 ML BTL IV ONE ×2 (01:09→19:49)
[2022-03-13 01:28] LABS: Hematocrit 26 % (42-52); Hemoglobin 7.9 g/dL (14.0-18.0)
[2022-03-13] MEDS: Lactulose 30 ml UDC PO SCH ×5 (01:53→21:02)
[2022-03-13] MEDS: ZOSYN 3.375 GM Q12H per EXTENDED INFUSION IV SCH ×2 (01:56→12:43)
[2022-03-13] MEDS: Pantoprazole VIAL 40 MG VIAL IV SCH (03:28)
[2022-03-13] MEDS: Chlorhexidine MOUTHWASH 0.12% 15 ML UDC SWISH SPIT SCH ×6 (03:28→21:03)
[2022-03-13] MEDS ORDERED: Octreotide Acetate 50 MCG in NS 0.9% 50 ML 50 ML IV ONE (03:45)
[2022-03-13 04:10] LABS: PCO2 Arterial 20 mmHg (35-45); PO2 Arterial 112 mmHg (80-100)
[2022-03-13] MEDS ORDERED: Sodium Bicarbonate 8.4% SYR 50 ml SYRINGE IV ONE ×2 (04:14→04:26)
[2022-03-13 04:15] LABS: Hematocrit 26 % (42-52); Hemoglobin 7.7 g/dL (14.0-18.0); Mean Corpuscular HGB Conc 30 g/dL (31-36); Mean Corpuscular Hemoglobin 31 pg (27-31); Mean Corpuscular Volume 104 fL (80-94); Mean Platelet Volume 8.6 fL (7.4-10.4); Platelet Count 157 10^3/uL (150-450); Red Blood Count 2.46 10^6 /uL (4.18-5.48); Red Cell Distribution Width 24 % (10-15); White Blood Count 24.3 10^3/uL (3.5-10.8)
[2022-03-13] MEDS ORDERED: Sodium Bicarbonate 8.4% VIAL 1 MEQ/ML 50 ml VIAL (50 meq) ONE (04:18)
[2022-03-13] MEDS: Octreotide Acetate 500 MCG in NS 0.9% 100 ml BAG 100 ML IV SCH ×3 (04:35→22:37)
[2022-03-13 04:43] LABS: Albumin 2.9 g/dL (3.2-5.2); Calcium 7.1 mg/dL (8.6-10.3); Total Bilirubin 3.5 mg/dL (0.2-1.0)
[2022-03-13] MEDS: Sodium Bicarb 8.4% Vial 50 ML 150 MEQ in D5W 1000 ml BAG 850 ML IV SCH ×3 (04:43→13:40)
[2022-03-13 04:49] LABS: Albumin/Globulin Ratio 1.5 (1-3); Creatinine, Serum 3.24 mg/dL (0.67-1.17); Globulin 1.9 g/dL (2-4); Phosphorus 7.9 mg/dL (2.5-5.0); Total Protein 4.8 g/dL (6.4-8.9); eGFR CKD-EPI 17.6 (>60)
[2022-03-13 05:18] LABS: ABS Lymphocytes 0.6 10^3/ul (1.0-4.8); ABS Monocytes 1.2 10^3/ul (0-0.8); ABS Neutrophils 22.4 10^3/ul (1.5-7.7); Lymphocyte % 2.6 %
[2022-03-13 05:27] LABS: Potassium 5.6 mmol/L (3.5-5.0)
[2022-03-13] MEDS: Norepinephrine *QUAD STRENGTH* 16 mg/250 mL NS per protocol IV SCH ×3 (07:01→22:37)
[2022-03-13 09:09] LABS: Hematocrit 22 % (42-52); Hemoglobin 6.6 g/dL (14.0-18.0)
[2022-03-13 09:48] LABS: Activated Partial Thrombo Time 59.8 seconds (26.0-38.0); INR 4.82 (0.88-1.18)
[2022-03-13 09:52] LABS: Albumin 2.4 g/dL (3.2-5.2); Albumin/Globulin Ratio 1.5 (1-3); Calcium 6.7 mg/dL (8.6-10.3); Creatinine, Serum 3.29 mg/dL (0.67-1.17); Globulin 1.6 g/dL (2-4); Total Bilirubin 3.7 mg/dL (0.2-1.0); eGFR CKD-EPI 17.2 (>60)
[2022-03-13 10:10] LABS: Potassium 5.1 mmol/L (3.5-5.0)
[2022-03-13 10:57] LABS: PCO2 Arterial 22 mmHg (35-45); PO2 Arterial 147 mmHg (80-100)
[2022-03-13] MEDS: VASOPRESSIN IVPREMIX BTL 40 UNIT/100 ML BTL IV SCH (10:59)
[2022-03-13] MEDS ORDERED: Albumin Human 25% 25 GM/100 ML BTL IV PRN (12:52)
[2022-03-13] MEDS ORDERED: Heparin 1,000 UNIT/ML 10 ml (10,000 UNITS) CATHLAB/DIALYSIS DIALYSIS ONE (12:53)
[2022-03-13] MEDS ORDERED: NS 0.9% 1000 ml BAG 200 ML IV PRN (12:53)
[2022-03-13] MEDS ORDERED: NS 0.9% 1000 ml BAG 100 ML IV PRN (12:53)
[2022-03-13] MEDS: Propofol 10 mg/ml 100 ML BTL 1,000 MG/100 ML BTL IV SCH (13:11)
[2022-03-13 15:30] LABS: PCO2 Arterial 21 mmHg (35-45); PO2 Arterial 143 mmHg (80-100)
[2022-03-13] MEDS ORDERED: Albumin Human 25% 25 GM/100 ML BTL IV ONE (15:49)
[2022-03-13] MEDS ORDERED: Phenylephrine IV 10 MG/ML 1 ml VIAL ONE (15:50)
[2022-03-13] MEDS ORDERED: PHENYLEPHRINE DRIP IVPREMIX 50 MG/250 ML BAG IV SCH (16:00)
[2022-03-13] MEDS ORDERED: Phenylephrine DRIP 0.2 MG/ML in NS 0.9% 250 ML (PHA mix) IV SCH (16:00)
[2022-03-13 16:21] LABS: Hematocrit 23 % (42-52); Hemoglobin 7.4 g/dL (14.0-18.0)
[2022-03-13] MEDS ORDERED: fentaNYL 100 mcg/2 ml 50 MCG/ML VIAL IV SLOW PU PRN (16:41)
[2022-03-13 17:03] LABS: Creatinine, Serum 2.64 mg/dL (0.67-1.17); Potassium 4.3 mmol/L (3.5-5.0); eGFR CKD-EPI 22.4 (>60)
[2022-03-13 17:09] LABS: Hepatitis B Surface Antigen Nonreactive (Nonreactive)
[2022-03-13 17:24] LABS: Calcium 6.3 mg/dL (8.6-10.3)
[2022-03-13 17:27] LABS: Hepatitis B Surface Ab Not Immune (Immune)
[2022-03-13] MEDS ORDERED: Norepinephrine IV 1 MG/ML 4 ML VIAL ONE (19:47)
[2022-03-13] MEDS ORDERED: Amiodarone 150 mg IVPREMIX 150 MG/100 ML BAG IV ONE (19:49)
[2022-03-13 21:27] LABS: Hematocrit 23 % (42-52); Hemoglobin 7.4 g/dL (14.0-18.0)
[2022-03-13 21:49] LABS: Calcium 6.6 mg/dL (8.6-10.3); Creatinine, Serum 3.3 mg/dL (0.67-1.17); Potassium 4.9 mmol/L (3.5-5.0); eGFR CKD-EPI 17.2 (>60)
[2022-03-13 22:52] LABS: PCO2 Arterial 23 mmHg (35-45); PO2 Arterial 126 mmHg (80-100)
[2022-03-14] MEDS: Chlorhexidine MOUTHWASH 0.12% 15 ML UDC SWISH SPIT SCH ×4 (00:18→11:36)
[2022-03-14] MEDS: Lactulose 30 ml UDC PO SCH ×3 (00:19→11:35)
[2022-03-14] MEDS: Pantoprazole VIAL 40 MG VIAL IV SCH (01:28)
[2022-03-14] MEDS: ZOSYN 3.375 GM Q12H per EXTENDED INFUSION IV SCH (02:02)
[2022-03-14] MEDS: Propofol 10 mg/ml 100 ML BTL 1,000 MG/100 ML BTL IV SCH (02:08)
[2022-03-14] MEDS: VASOPRESSIN IVPREMIX BTL 40 UNIT/100 ML BTL IV SCH (03:37)
[2022-03-14 04:14] LABS: Hematocrit 24 % (42-52); Hemoglobin 7.1 g/dL (14.0-18.0); Mean Corpuscular HGB Conc 30 g/dL (31-36); Mean Corpuscular Hemoglobin 29 pg (27-31); Mean Corpuscular Volume 97 fL (80-94); Mean Platelet Volume 9.5 fL (7.4-10.4); Platelet Count 117 10^3/uL (150-450); Red Blood Count 2.43 10^6 /uL (4.18-5.48); Red Cell Distribution Width 26 % (10-15); White Blood Count 20.3 10^3/uL (3.5-10.8)
[2022-03-14 04:15] LABS: PCO2 Arterial 23 mmHg (35-45); PO2 Arterial 105 mmHg (80-100)
[2022-03-14 04:40] LABS: Calcium 6.6 mg/dL (8.6-10.3); Creatinine, Serum 3.7 mg/dL (0.67-1.17)
[2022-03-14 04:50] LABS: Potassium 6.1 mmol/L (3.5-5.0)
[2022-03-14] MEDS: Norepinephrine *QUAD STRENGTH* 16 mg/250 mL NS per protocol IV SCH (05:02)
[2022-03-14] MEDS: Sodium Bicarb 8.4% Vial 50 ML 150 MEQ in D5W 1000 ml BAG 850 ML IV SCH (06:00)
[2022-03-14] MEDS ORDERED: Lorazepam PYXIS KEY PRN ×2 (07:41→07:54)
[2022-03-14] MEDS ORDERED: LORazepam 2 mg VIAL 1 ml IV PUSH ONE ×2 (07:41→07:54)
[2022-03-14] MEDS ORDERED: Morphine 10 MG/ML VIAL (1 ml) IV ONE (08:15)
[2022-03-14] MEDS ORDERED: Morphine PCA ADULT 5 MG/ML 30 ML PCA SCH (08:30)
[2022-03-14 09:42] VITALS: BP 108/43
[2022-03-14] MEDS: Octreotide Acetate 500 MCG in NS 0.9% 100 ml BAG 100 ML IV SCH (11:36)
== END 2022-03-14 08:45 | disposition expired | DRG 871 ==
LOC: ED 16:48 → ICU 16:59 → EDHOLD 19:25 → ICU 21:15
PROVIDERS: ADMIT Internal Medicine Critical Care Medicine; ATTEND Internal Medicine Critical Care Medicine